=== PATIENT | female | born 1965 | race Caucasian/White ===

== ENCOUNTER → 2017-09-15 08:50 | Outpatient (CLI) | payer OTHER, SELFPAY ==
--- NOTE | 2017-09-15 16:28 | NEURO ---
NCS and/or EMG Patient Report Ordering Doctor: Soha Jacobs DATE OF SERVICE: 09/15/17 Xiao Ha is a 52 year old female who presents for electrodiagnostic testing of the lower limbs. She reports pain in both legs, primarily around the knees. Electrodiagnostic findings: Normal peroneal motor and tibial motor responses noted bilaterally. Sensory responses are within normal limits. F waves and H reflexes are normal bilaterally. On needle EMG, all muscles tested in the lower limbs showed no evidence of denervation with normal motor unit action potentials. Electrodiagnostic impression: This is a normal electrodiagnostic study in the lower limbs. There is no electrodiagnostic evidence for peripheral neuropathy or lumbosacral radiculopathy. If there are any further questions, please do not hesitate to contact me.
== END ==
LOC: PSN 08:51
PROVIDERS: Family Provider Student in an Organized Health Care Education/Training Program; PCP Student in an Organized Health Care Education/Training Program; Visit Provider Nurse Practitioner Adult Health
DX: M79.604 Pain in right leg (principal); M79.605 Pain in left leg
CPT/HCPCS: 95886; 95912

== ENCOUNTER 2019-10-10 17:15 | Observation (INO) | payer SELFPAY ==
[2019-10-10] VITALS (8 sets, daily range): BP systolic 116–182; BP diastolic 65–113; PULSE 90–120; RESP 18–27; TEMP 35.6–37.1; O2SAT 96–98; BMI 36.1; BMI 35.2; BMI 35.3
--- NOTE | 2019-10-10 17:27 | EKG12_ITS ---
Test Reason : SOB Blood Pressure : / mmHG Vent. Rate : 110 BPM Atrial Rate : 110 BPM P-R Int : 136 ms QRS Dur : 082 ms QT Int : 334 ms P-R-T Axes : 022 -57 026 degrees QTc Int : 452 ms Sinus tachycardia Left anterior fascicular block Abnormal ECG Confirmed by HANNA NSES, LUIS ([id number]), publications editor CLAUDIA OSORIO ([id number]) on 10/16/2019 10:50:04 AM Referred By: CAT Confirmed By:DEMETRIA FERREIRA MD
--- NOTE | 2019-10-10 17:29 | NURSING ---
NO OLD EKGS
--- NOTE | 2019-10-10 17:45 | RAD_ITS ---
STUDY: X-RAY CHEST REASON FOR EXAM: Female, 54 years old. Shortness of breath TECHNIQUE: Single frontal view of the chest. COMPARISON: None. FINDINGS: Cardiac silhouette unremarkable. Pulmonary vascularity unremarkable. Aorta unremarkable. No focal airspace opacities. No pleural effusions. Upper abdomen unremarkable. Osseous structures intact. No pneumothorax. RAD/Chest 1 View (Portable) IMPRESSION: No acute cardiopulmonary findings Electronically Signed: Del Lemons, at 18:34 EDT Tel , Service support ,
[2019-10-10 17:48] LABS: Absolute Lymphocyte Count 2.05 X10^3/uL (0.83-4.51); Absolute Neutrophil Count 6.8 X10^3/uL (2.0-7.7); Basophil# 0.04 X10^3/uL; Basophil% 0.4 % (0-1); Eosinophil# 0.16 X10^3/uL; Eosinophils% 1.6 % (0-5); Hematocrit 48.8 % (37-47); Hemoglobin 15.7 g/dL (12.0-15.0); Lymphocyte # 2.05 X10^3/ul (4.0); Lymphocyte % 20.9 % (19-41); Mean Corp Hgb Conc 32.2 g/dL (32-36); Mean Corpuscular Hgb 29.6 pg (27.0-32.0); Mean Corpuscular Volume 91.9 fL (81-99); Mean Platelet Vol. 8.8 fl (6.2-12.0); Monocyte# 0.73 X10^3/uL; Monocyte% 7.4 % (0-10); NRBC Flagged by Analyzer 0 % (0-5); Neutrophil # 6.79 X10^3/uL (2.7-7.7); Neutrophil % 69.2 % (47-70); Platelet Count 269 K/mm3 (150-450); RBC Distribution Width CV 13.3 % (11.6-14.6); Red Blood Count 5.31 M/mm3 (4.2-5.4); White Blood Count 9.8 K/mm3 (4.4-11.0)
--- NOTE | 2019-10-10 18:11 | CT_ITS ---
STUDY: CTA CHEST REASON FOR EXAM: Female, 54 years old. SOB,COUGH -- HX:DIABETES,HTN RADIATION DOSAGE (If Supplied By Facility): CTDIvol = ( 12.63 ) mGy, DLP = ( 513.67 ) mGycm TECHNIQUE: The examination was performed with the intravenous administration of 100ML 370 ISOVUE. Post-processing of the angiographic images was performed, with multiplanar reformation and 3D reconstruction. Individualized dose optimization techniques were used for this CT. COMPARISON: None. FINDINGS: Normal enhancement of the main pulmonary artery and right and left pulmonary arteries. Normal enhancement of the bilateral peripheral pulmonary arteries. Large embolus burden involving the left main pulmonary artery extending just into the pulmonary arterial trunk approximately and distally extending into multiple segmental and subsegmental pulmonary arterial branches. Additionally there is a significant right pulmonary arterial system embolus burden involving multiple segmental branches of the right pulmonary arterial tree predominantly to the middle and lower lobes. Normal thoracic aorta and visualized great vessels. There is no demonstrated aortic dissection. Normal heart and pericardium. Normal mediastinum. Normal hilar regions. Normal visualized trachea and bronchi. The lungs are well expanded. 9 mm nodular density at the left base. Otherwise unremarkable pulmonary parenchyma. Normal pleura. Normal chest wall structures. Normal osseous structures. Normal visualized upper abdomen. CT/CTA Chest W/WO Contrast IMPRESSION: Large pulmonary embolus burden within the pulmonary arterial system as described above. Findings discussed with Dr. Martines by Dr. Lemons on 10/10/2019 7:14 PM via telephone. N.B. : The above information has been verbally conveyed by Del Lemons to Bert Martines MD, on 10/10/2019 19:14:07 (ET). Electronically Signed: Del Lemons, at 19:16 EDT Tel , Service support ,
[2019-10-10 18:14] LABS: Anion Gap 7 (5-15); BUN 19 mg/dL (7-18); BUN/Creat Ratio 22.7 RATIO (10-20); Calcium,Total 10.1 mg/dL (8.5-10.1); Chloride 106 mmol/L (98-107); Creatinine, Serum 0.84 mg/dL (0.55-1.02); EST Glomerular Filtration Rate 75 mL/min (>60); Est Glom Filt Rate - Afr Amer 90 mL/min (>60); Estimated Creatinine Clearance 75.44 ml/min; Glucose 191 mg/dL (74-106); Potassium 4.1 mmol/L (3.5-5.1); Sodium Level 138 mmol/L (136-145)
--- NOTE | 2019-10-10 19:29 | HP.PCM_ITS ---
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 Associated with his symptoms is a postnasal drip which triggers a cough. Further she has some burning in her chest. She reported that her blood pressure at home was elevated. She denies any other symptoms. At emergent department she was noted to have shortness of breath; tachycardia; elevated d-dimer and elevated troponin. D-dimer and troponin was elevated.. CTPA showed large embolus. Received therapeutic dose of Lovenox at the emergency department. She reports history of total hysterectomy without any need for routine Pap smear. She reported that some years back she had a colonoscopy and polyps were removed. Her last colonoscopy was July 2019. Her last colonoscopy was clean. Her mammography was in July 2019. Her last mammography was u nremarkable. She denies any recent travel or immobility. She denies any family history of clots. COVID screen: She denies knowingly coming into contact with anybody with COVID- 19. 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 She denies any recent travel. Past Medical History Past Medical History (Chronic Problems): Chronic Problems HTN (hypertension) (Chronic) Diabetes (Chronic) Allergies aspirin [ASA] Adverse Reaction (Verified 10/10/19 17:16) Nausea latex Adverse Reaction (Verified 10/10/19 17:16) Itching Home Medications: Ambulatory Orders Medication Instructions Recorded Fluoxetine HCl [Prozac] 20 mg PO DAILY 10/10/19 Lisinopril 30 mg PO DAILY 10/10/19 Meloxicam [Mobic] 7.5 mg PO DAILY 10/10/19 Metformin HCl 1,000 mg PO BID 10/10/19 Oxybutynin Chloride [Ditropan Xl] 10 mg PO DAILY 10/10/19 Surgical History: hysterectomy, - - Ovarian cyst and polyp removal. Umbilical hernia repair. Psychiatric History: Anxiety, Depression Smoking Status: Former smoker Alcohol: Occasional - *Family History Maternal History Items: Cancer - colon Paternal History Items: Diabetes Review of Systems Constitutional: Denies: Chills, Fever, Weight Change HEENT: Reports: Post Nasal Drip. Denies: Head Aches, Sinus Congestion, Sinus Drainage Cardiovascular: Reports: Chest Pain. Denies: Palpitations Respiratory: Reports: Cough, Shortness of Breath Gastrointestinal: Denies: Abdominal Pain, Nausea, Vomiting Genitourinary: Denies: Dysuria Musculoskeletal: Denies: Joint Pain, Joint Tenderness Skin: Denies: Rash, Wounds Neurological: Denies: Numbness, Tingling, Focal weakness Psychiatric: Denies: Anxiety, Depression, Homicidal Ideations, Suicidal Ideations Hematologic/ Lymphatic: Denies: Easy Bruising, Easy Bleeding VTE Information - Inpt Only VTE Present on Admission: Yes VTE Mechan Device Prophylaxis: None VTE Pharm Prophylaxis ordered?: No Reason prophylaxis not ordered:: Treatment Not Indicated - Started on therapeutic dose of Lovenox for acute PE Patient Problems: Active and Suspected Problems Pulmonary embolism (Acute) - Physical Exam Vitals/I&O's: Vital Signs Temp Pulse Resp BP Pulse Ox 98.1 F 103 H 18 134/100 H 98 10/10/19 17:16 10/10/19 18:56 10/10/19 18:56 10/10/19 18:56 10/10/19 18:56 Oxygen Delivery Method Room Air Weight: 107.7 kg Body Mass Index (BMI) 36.1 General: Alert, Oriented x3, Cooperative HEENT: Atraumatic, PERRLA, EOMI, Normocephalic Neck: Supple, No JVD, Negative Carotid Bruits Lungs: Clear to auscultation, Normal air movement, No rhonchi, No wheeze, No rales, Tachypneic Cardiovascular: Normal S1, Normal S2, No murmurs, Tachycardic Abdomen: Bowel Sounds Present, Soft, Non Tender Extremities: No edema, Capillary Refill Less than 3 Seconds Skin: No rashes, No breakdown Musculoskeletal: No Tenderness to Palpation of Joints or Extremities Neurological: Cranial nerves II-XII grossly intact Psych/Mental Status: Normal Affect, Appropriate Laboratory Results 10/10/19 17:40: WBC 9.8, RBC 5.31, Hgb 15.7 H, Hct 48.8 H, MCV 91.9, MCH 29.6, MCHC 32.2, RDW Std Deviation 45.0 H, RDW Coeff of Myranda 13.3, Plt Count 269, MPV 8.8, Immature Gran % (Auto) 0.500, Neut % (Auto) 69.2, Lymph % (Auto) 20.9, Merrick % (Auto) 7.4, Eos % (Auto) 1.6, Baso % (Auto) 0.4, Absolute Neuts (auto) 6.8, Absolute Lymphs (auto) 2.05, Nucleated RBC % 0 10/10/19 17:40: D-Dimer Quant (PE/DVT) 3.40 H* 10/10/19 17:40: Sodium 138, Potassium 4.1, Chloride 106, Carbon Dioxide 25.0, Anion Gap 7, BUN 19 H, Creatinine 0.84, Estim Creat Clear Calc 75.44, Est GFR (MDRD) Af Amer 90, Est GFR (MDRD) Non-Af 75, BUN/Creatinine Ratio 22.7 H, Glucose 191 H, Calcium 10.1, Troponin I 0.266 H Assessment/Plan All Active Problems Pulmonary embolism (Acute) 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 Bilateral pulmonary embolus Chest CTA showed bilateral PE. Chest CT was independently reviewed. I agree with radiologist interpretation. Her only risk of PE appears to be obesity. Troponin was elevated. Trend troponin. We will get BNP to quantify prognosis. Consider echocardiogram. Received therapeutic dose of Lovenox. Continue therapeutic Lovenox. 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 Pulmonary consulted. Discussed with Dr. Reilly. Pulmonary nodule Nine (9) mm nodular density at left base base CTPA. Longitudinal follow-up recommended. Hypertension On presentation blood pressure was not within goal. Lisinopril continued. Trend blood pressures. Diabetes mellitus Hyperglycemia on presentation. On home metformin. Due to contrast use with CTPA hold metformin at this time. Put on correction scale insulin. If Blood glucose is not within goal consider basal insulin. Depression/anxiety Fluoxetine continued. Overactive bladder Oxybutynin continued. Morbid obesity: BMI of 35.3. Complicates care. Lifestyle modification recommended. DVT prophylaxis Not indicated since patient is being treated for PE. Continue therapeutic treatment for acute PE. Essential Procedure Criteria Procedure Essential: No Criteria Note: On 09/05/2019 the [facility] ([facility]) Public Order signed by [facility] Director Rebecca Burgos M.D., regarding the Management of Non-Esse ntial Surgeries and Procedures for the purpose of preserving Personal Protective Equipment (PPE) and critical hospital capacity and resources within [place] went into effect as of 09/06/2019 at 5:00PM. According to the [facility] Public Order: This action will remain in full force and effect until the State of Emergency declared by the Governor no longer exists or the Director of the [facility] rescinds or modifies this Order.. This [facility] order stated all non-essential or elective surgeries and procedures that utilize PPE should be delayed unless there is undue risk to the current or future health of a patient. After reviewing the aforementioned [facility] Public Order and the patients clinical case, I have determined that the scheduled procedure meets the criteria to go forward. Inpatient E&M: 19052 Init Hosp L3
--- NOTE | 2019-10-10 19:34 | ED.DCSUM_ITS ---
- ER Visit Summary Date of Service: 10/10/19 Chief Complaint: Shortness of breath History of Present Illness: The patient is a 54 F who presents with shortness of breath. She states that started around lunchtime today. She feels very winded. Nothing really makes symptoms better or worse. She has had a slight nonproductive cough. She does admit to some rhinorrhea as well. She states that she has had some heaviness in the middle of her chest. She denies a fever. No history of any lung issues. Denies any exposures to coronavirus. She states her blood pressure has been elevating at home and when she talk to her doctor they thought she should come in for evaluation. Denies any history of DVT or PE. She has no PE or DVT risk factors. Her only cardiac risk factor is diabetes. Physical Examination: Vital signs reviewed. HEENT exam unremarkable. Heart is tachycardic and regular rhythm without murmurs. Lungs are clear to auscultation. Abdomen is soft and nontender. Extremities reveal no edema. Peripheral pulses are equal. Skin exam normal. Neurologic exam normal. Test Results: EKG was sinus tachycardia with a rate of 110. No ST changes. Laboratory studies show a hemoglobin of 15.7, glucose 191. Troponin is 0.226, d-dimer 3.4. Chest x-ray unremarkable. CAT scan of the chest does show bilateral PEs with large clot burden. Emergency Department Course and Treatment: Radiologist did not remark about any RV strain. Patient's pulse ox is normal. However, due to her elevated troponin, tachycardia and tachypnea, I feel the patient should be admitted to the hospital. I gave her a dose of Lovenox here. She is allergic to aspirin. Treatment Plan: [] Disposition: Admit Impression: Bilateral pulmonary emboli, elevated troponin This note was generated with [employer] dictation software. It may contain incorrect words, spelling, and punctuation that were not noted in review of the chart prior to signing ED Disposition - Plan for ED Patient: Referrals: Talib Heredia DO [Primary Care Provider] -
[2019-10-10] MEDS: Enoxaparin 120 MG/0.8 ML Syringe 110 MG SC (19:40)
[2019-10-10] MEDS: 0.9% Saline Lock 10 ML Syringe IV (20:54)
[2019-10-10] MEDS: Insulin Lispro 100 UNIT/ML INSULN.PEN SC (21:00)
[2019-10-10 21:06] LABS: Bedside Glucose 181 mg/dL (70-110)
[2019-10-11] VITALS: BP 125/73; PULSE 92; RESP 20; TEMP 35.7; O2SAT 98
[2019-10-11 03:41] VITALS: PULSE 74
[2019-10-11 05:00] VITALS: BP 119/82; PULSE 81; RESP 18; TEMP 35.6; O2SAT 99
[2019-10-11] MEDS: 0.9% Saline Lock 10 ML Syringe IV (05:32)
[2019-10-11 06:01] LABS: Absolute Lymphocyte Count 1.49 X10^3/uL (0.83-4.51); Basophil# 0.03 X10^3/uL; Basophil% 0.4 % (0-1); Eosinophil# 0.14 X10^3/uL; Eosinophils% 1.9 % (0-5); Hematocrit 44.3 % (37-47); Hemoglobin 14.4 g/dL (12.0-15.0); Lymphocyte # 1.49 X10^3/ul (4.0); Lymphocyte % 20.4 % (19-41); Mean Corp Hgb Conc 32.5 g/dL (32-36); Mean Corpuscular Hgb 29.6 pg (27.0-32.0); Mean Corpuscular Volume 91.2 fL (81-99); Monocyte% 8.2 % (0-10); NRBC Flagged by Analyzer 0 % (0-5); Neutrophil # 5.01 X10^3/uL (2.7-7.7); Neutrophil % 68.7 % (47-70); Platelet Count 226 K/mm3 (150-450); RBC Distribution Width CV 13.4 % (11.6-14.6); RBC Distribution Width SD 44.8 fl (35.1-43.9); Red Blood Count 4.86 M/mm3 (4.2-5.4); White Blood Count 7.3 K/mm3 (4.4-11.0)
[2019-10-11 06:09] LABS: BNP,B-Type NATRIURETIC PEPTIDE 41.7 pg/mL (0-100)
[2019-10-11 06:12] LABS: Anion Gap 9 (5-15); BUN 16 mg/dL (7-18); BUN/Creat Ratio 21.4 RATIO (10-20); Calcium,Total 9.1 mg/dL (8.5-10.1); Chloride 103 mmol/L (98-107); Creatinine, Serum 0.75 mg/dL (0.55-1.02); EST Glomerular Filtration Rate 85 mL/min (>60); Est Glom Filt Rate - Afr Amer 103 mL/min (>60); Estimated Creatinine Clearance 84.49 ml/min; Glucose 233 mg/dL (74-106); Potassium 4.3 mmol/L (3.5-5.1); Sodium Level 137 mmol/L (136-145)
--- NOTE | 2019-10-11 06:58 | PCM.CON.CC ---
Reason for Consult Date of Consultation: 10/11/19 Reason for Consultation: Pulmonary embolism History of Present Illness: The patient is a 54-year-old female, with a history as outlined below, who presented to the emergency department on October 09 with complaints of shortness of breath. In addition, the patient reports the presence of a chronic, nonproductive cough related to postnasal drip symptoms, along with rhinorrhea. She denies any fevers, chills, myalgias or any known COVID exposures. Although the patient has no personal history of venous thromboembolic disease, she does report that both her brother and sister have both had blood clots. The etiology for their blood clots was never determined. The patient denies any recent travel or prolonged immobility. The patient does have a known history of obstructive sleep apnea, for which he utilizes nocturnal Pap therapy. 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 On presentation to the emergency department, the patient was noted to be tachycardic and tachypneic. She was, nevertheless hemodynamically stable and maintaining appropriate oxygen saturations on room air. Laboratory evaluation revealed no evidence of leukocytosis. D-dimer was elevated to 3.4. Chemistry profile was unremarkable. Initial troponin was mildly elevated at 0.266. BNP was within normal limits. A CTA chest was obtained which did reveal evidence of significant bilateral pulmonary emboli. The patient was subsequently admitted to the medical intensive care unit for further management. Overnight, the patient was maintained in COVID precautions. However, her CTA chest does not reveal a pattern consistent with coronavirus infection, nor does she endorse any symptoms overtly concerning for infection. Therefore, the precautions were discontinued this morning. Past Medical History Past Medical History (Chronic Problems): Chronic Problems HTN (hypertension) (Chronic) Diabetes (Chronic) Allergies aspirin [ASA] Adverse Reaction (Verified 10/10/19 17:16) Nausea latex Adverse Reaction (Verified 10/10/19 17:16) Itching Home Medications: Ambulatory Orders Medication Instructions Recorded Fluoxetine HCl [Prozac] 20 mg PO DAILY 10/10/19 Lisinopril 30 mg PO DAILY 10/10/19 Metformin HCl 1,000 mg PO BID 10/10/19 Oxybutynin Chloride [Ditropan Xl] 10 mg PO DAILY 10/10/19 Rivaroxaban [Xarelto] 1 tab PO UD 30 Days #51 tab 10/11/19 Surgical History: hysterectomy, - - Ovarian cyst and polyp removal. Umbilical hernia repair. Psychiatric History: Anxiety, Depression Smoking Status: Former smoker Alcohol: Occasional - *Family History Maternal History Items: Cancer - colon Paternal History Items: Diabetes Review of Systems Constitutional: Denies: Chills, Fever, Night Sweats Eyes: Denies: Blurred vision, Double vision HEENT: Reports: Post Nasal Drip, Sinus Drainage Cardiovascular: Denies: Chest Pain, Palpitations Respiratory: Reports: Cough, Shortness of Breath. Denies: Sputum production Gastrointestinal: Denies: Abdominal Pain, Nausea, Vomiting Genitourinary: Denies: Dysuria Musculoskeletal: Denies: Joint Pain, Joint Tenderness Skin: Denies: Rash, Wounds Neurological: Denies: Numbness, Tingling, Focal weakness Psychiatric: Denies: Anxiety, Depression, Homicidal Ideations, Suicidal Ideations Hematologic/ Lymphatic: Denies: Hx of blood clot Patient Problems: Active and Suspected Problems Pulmonary embolism (Acute) Objective: The patient's most recent lab work, culture data and imaging studies have all been personally reviewed. Respiratory viral panel was negative. - Physical Exam Vitals/I&O's: Vital Signs Temp Pulse Resp BP Pulse Ox 96.0 F L 81 18 119/82 H 99 10/11/19 05:00 10/11/19 05:00 10/11/19 05:00 10/11/19 05:00 10/11/19 05:00 Oxygen Flow Rate (L/min) 2 Oxygen Delivery Method Nasal Cannula Weight: 232 lb 12.93 oz Body Mass Index (BMI) 35.2 Intake and Output for Last 24 Hours 10/09/19 10/10/19 10/11/19 23:59 23:59 23:59 Intake Total 240 / 240 360 / 360 Balance 240 / 240 360 / 360 General: Alert, Oriented x3, Cooperative, No apparent distress HEENT: Atraumatic, PERRLA, Normocephalic Oral: No Gingival or Mucosal Lesions/ Ulcerations Neck: Supple, No Nodes, Trachea Midline Lungs: Normal air movement, No rhonchi, No wheeze, No rales Cardiovascular: Regular rate, Regular Rhythm, Normal S1, Normal S2 Abdomen: Bowel Sounds Present, Soft, Non Tender, Obese Extremities: No clubbing, No cyanosis Skin: No breakdown Musculoskeletal: No Muscle Wasting Lymphatic: No Cervical, Supraclavicular, or Inguinal Adenopathy Neurological: Cranial nerves II-XII grossly intact, Neuro grossly intact Psych/Mental Status: Alert and oriented to time, place, person, mood and affect Labs (Last 48 Hours) 10/10/19 10/10/19 10/10/19 17:40 17:40 17:40 WBC 9.8 RBC 5.31 Hgb 15.7 H Hct 48.8 H MCV 91.9 MCH 29.6 MCHC 32.2 RDW Std Deviation 45.0 H RDW Coeff of Myranda 13.3 Plt Count 269 MPV 8.8 Immature Gran % (Auto) 0.500 Neut % (Auto) 69.2 Lymph % (Auto) 20.9 [place] % (Auto) 7.4 Eos % (Auto) 1.6 Baso % (Auto) 0.4 Absolute Neuts (auto) 6.8 Absolute Lymphs (auto) 2.05 Nucleated RBC % 0 D-Dimer Quant (PE/DVT) 3.40 H* Sodium 138 Potassium 4.1 Chloride 106 Carbon Dioxide 25.0 Anion Gap 7 BUN 19 H Creatinine 0.84 Estim Creat Clear Calc 75.44 Est GFR (MDRD) Af Amer 90 Est GFR (MDRD) Non-Af 75 BUN/Creatinine Ratio 22.7 H Glucose 191 H Calcium 10.1 Troponin I 0.266 H B-Natriuretic Peptide POC Glucose 10/10/19 10/10/19 10/10/19 20:32 20:45 23:50 WBC RBC Hgb Hct MCV MCH MCHC RDW Std Deviation RDW Coeff of Myranda Plt Count MPV Immature Gran % (Auto) Neut % (Auto) Lymph % (Auto) [place] % (Auto) Eos % (Auto) Baso % (Auto) Absolute Neuts (auto) Absolute Lymphs (auto) Nucleated RBC % D-Dimer Quant (PE/DVT) Sodium Potassium Chloride Carbon Dioxide Anion Gap BUN Creatinine Estim Creat Clear Calc Est GFR (MDRD) Af Amer Est GFR (MDRD) Non-Af BUN/Creatinine Ratio Glucose Calcium Troponin I 0.213 H 0.147 H B-Natriuretic Peptide POC Glucose 181 H 10/11/19 10/11/19 10/11/19 05:51 05:51 05:51 WBC 7.3 RBC 4.86 Hgb 14.4 Hct 44.3 MCV 91.2 MCH 29.6 MCHC 32.5 RDW Std Deviation 44.8 H RDW Coeff of Myranda 13.4 Plt Count 226 MPV 9.0 Immature Gran % (Auto) 0.400 Neut % (Auto) 68.7 Lymph % (Auto) 20.4 [place] % (Auto) 8.2 Eos % (Auto) 1.9 Baso % (Auto) 0.4 Absolute Neuts (auto) 5.0 Absolute Lymphs (auto) 1.49 Nucleated RBC % 0 D-Dimer Quant (PE/DVT) Sodium 137 Potassium 4.3 Chloride 103 Carbon Dioxide 25.0 Anion Gap 9 BUN 16 Creatinine 0.75 Estim Creat Clear Calc 84.49 Est GFR (MDRD) Af Amer 103 Est GFR (MDRD) Non-Af 85 BUN/Creatinine Ratio 21.4 H Glucose 233 H Calcium 9.1 Troponin I B-Natriuretic Peptide 41.7 POC Glucose Microbiology 10/10/19 22:20 Mucosa - Nasopharyngeal Respiratory Panel (PCR) - Final Clinical Impression(s) from Imaging Studies Chest X-Ray 10/10/19 17:45 IMPRESSION: No acute cardiopulmonary findings Electronically Signed: Del Lemons, at 18:34 EDT Tel , Service support , Chest CTA 10/10/19 18:11 IMPRESSION: Large pulmonary embolus burden within the pulmonary arterial system as described above. Findings discussed with Dr. Martines by Dr. Lemons on 10/10/2019 7:14 PM via telephone. N.B. : The above information has been verbally conveyed by Del Lemons to Bert Martines MD, on 10/10/2019 19:14:07 (ET). Electronically Signed: Del Lemons at 19:16 EDT Tel , Service support , ADDENDUM: 10/10/191922 IMPRESSION: Large pulmonary embolus burden within the pulmonary arterial system as described above. Findings discussed with Dr. Martines by Dr. Lemons on 10/10/2019 7:14 PM via telephone. N.B. : The above information has been verbally conveyed by Del Lemons to Bert Martines MD, on 10/10/2019 19:14:07 (ET). Electronically Signed: Del Lemons, at 19:16 EDT Tel , Service support , Current Medications Dextrose (D50w Syringe) 0 gm IV X1 PRN; Protocol PRN Reason: Hypoglycemia Enoxaparin Sodium (Lovenox) 110 mg SC Q12 JANELLE Last Admin: 10/10/19 20:33 Dose: Not Given Documented by: Fluoxetine HCl (Prozac) 20 mg PO DAILY JANELLE Glucagon () 1 mg IM .X1 PRN PRN Reason: Hypoglycemia Sodium Chloride () 250 mls @ 15 mls/hr IV .[id number] PRN PRN Reason: Saline Flush Sodium Chloride () 250 mls @ 15 mls/hr IV .[id number] PRN PRN Reason: Additional IVPB Infusion Insulin Human Lispro (Humalog Kwikpen (Bkc)) 0 unit SC ACHS JANELLE; Protocol Last Admin: 10/10/19 21:00 Dose: 2 u Documented by: Lisinopril (Zestril) 30 mg PO DAILY JANELLE Melatonin (Melatonin) 3 mg PO QHS PRN PRN PRN Reason: INSOMNIA Meloxicam (Mobic) 7.5 mg PO DAILY JANELLE Ondansetron HCl (Zofran) 4 mg IV Q8H PRN PRN PRN Reason: NAUSEA/VOMITING Sodium Chloride () 10 - 40 ml IV UD PRN PRN Reason: SALINE FLUSH Last Admin: 10/11/19 05:32 Dose: 40 ml Documented by: Tolterodine Tartrate (Detrol La) 2 mg PO DAILY [facility] Assessment/Plan Active and Suspected Problems Pulmonary embolism (Acute) RECOMMENDATIONS: 1. Discontinue COVID precautions. I do not see an indication to proceed with testing at this time. 2. Continue Lovenox for now with plans to transition to either Xarelto or Eliquis, depending on cost. 3. Consider outpatient hypercoagulable work-up, given family history of blood clots. 4. Obtaining an echocardiogram is not necessary, as it would not change our management. 5. Perform walking oximetry prior to consideration for discharge home. 6. The patient should follow-up in the pulmonary medicine clinic after discharge. 7. The patient is medically stable for transfer out of the intensive care unit versus possible discharge home today. IMPRESSIONS: 1. Bilateral pulmonary emboli Unclear precipitating etiology, although, the patient does report that both her brother and sister have been diagnosed with blood clots. Therefore, the patient may require outpatient hypercoagulable work-up at some point in the future. For now, I would recommend that we transition her from Lovenox over to either Eliquis or Xarelto. Perform walking oximetry study prior to consideration for discharge home. The patient will need to be scheduled for a follow-up visit in the pulmonary medicine clinic after discharge. 2. Chronic cough likely related to postnasal drip Likely related to allergic rhinitis. Intranasal fluticasone can be considered for symptom relief. 3. Hypertension/diabetes mellitus/obstructive sleep apnea/depression/anxiety/obesity Complicates care, management, recovery and prognosis. Continue home medications as indicated. This note was generated with [employer] dictation software. It may contain incorrect words, spelling, and punctuation that were not noted in checking the note before signing. Inpatient E&M: 09524 Init Hosp L3
--- NOTE | 2019-10-11 07:10 | PCM.PN.HOSP ---
Patient Problems: Active and Suspected Problems Pulmonary embolism (Acute) Subjective: Patient with no acute events overnight per self and per nursing report. She notes feeling improved since initial presentation and notes dyspnea with primarily exertion. She denies any chest discomfort or market coughing. Family history discussed and she does admit that her siblings x2 do have a history of multiple VTE but unclear specific hypercoagulable state. Patient denies any recent prolonged sedentary state, travel, high risk situations as etiology for acute presentation and discussed that likely given her sibling status would need a follow-up hypercoagulable work-up outpatient. 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 Patient denies fevers, chills, nausea, emesis, abdominal pain, chest pain. Objective: Physical Examination: General: awake, alert, oriented x 3 and cooperative, seated upright in the ICU bed in no apparent distress. Skin: normal color, turgor, no icterus, cyanosis. HEENT: AT/NC, EOMI, PERRLA, MMM. Lungs: CTA bilaterally, moderate effort, mild decrease BL bases, no rales, ronchi or wheezing. Heart: Regular rate and rhythm; no gallop, rub audible. Abdomen: soft, obese, NTTP, ND, normal BS. Extremities: no cyanosis, clubbing, or edema, no BL LE pain with palpation. Neurological: patient awake, alert, oriented x 3; cognitive function intact; pupils equally reactive to light and accomodation; cranial nerves II-XII grossly normal, moving all 4 extremities, no focal deficits, strength moderately globally decreased secondary to acute presentation. Psychiatric: affect appears normal, no acute evidence of depressive or anxiety feelings. Vitals/I&O's: Vital Signs Temp Pulse Resp BP Pulse Ox 96.0 F L 81 18 119/82 H 99 10/11/19 05:00 10/11/19 05:00 10/11/19 05:00 10/11/19 05:00 10/11/19 05:00 Oxygen Flow Rate (L/min) 2 Oxygen Delivery Method Nasal Cannula Weight: 232 lb 12.93 oz Body Mass Index (BMI) 35.2 Intake and Output for Last 24 Hours 10/09/19 10/10/19 10/11/19 23:59 23:59 23:59 Intake Total 240 / 240 360 / 360 Balance 240 / 240 360 / 360 Microbiology Past 72 Hours 10/10/19 22:20 Mucosa - Nasopharyngeal Respiratory Panel (PCR) - Final Laboratory Results 10/10/19 17:40: WBC 9.8, RBC 5.31, Hgb 15.7 H, Hct 48.8 H, MCV 91.9, MCH 29.6, MCHC 32.2, RDW Std Deviation 45.0 H, RDW Coeff of Myranda 13.3, Plt Count 269, MPV 8.8, Immature Gran % (Auto) 0.500, Neut % (Auto) 69.2, Lymph % (Auto) 20.9, Jones % (Auto) 7.4, Eos % (Auto) 1.6, Baso % (Auto) 0.4, Absolute Neuts (auto) 6.8, Absolute Lymphs (auto) 2.05, Nucleated RBC % 0 10/10/19 17:40: D-Dimer Quant (PE/DVT) 3.40 H* 10/10/19 17:40: Sodium 138, Potassium 4.1, Chloride 106, Carbon Dioxide 25.0, Anion Gap 7, BUN 19 H, Creatinine 0.84, Estim Creat Clear Calc 75.44, Est GFR (MDRD) Af Amer 90, Est GFR (MDRD) Non-Af 75, BUN/Creatinine Ratio 22.7 H, Glucose 191 H, Calcium 10.1, Troponin I 0.266 H 10/10/19 20:32: POC Glucose 181 H 10/10/19 20:45: Troponin I 0.213 H 10/10/19 23:50: Troponin I 0.147 H 10/11/19 05:51: Sodium 137, Potassium 4.3, Chloride 103, Carbon Dioxide 25.0, Anion Gap 9, BUN 16, Creatinine 0.75, Estim Creat Clear Calc 84.49, Est GFR (MDRD) Af Amer 103, Est GFR (MDRD) Non-Af 85, BUN/Creatinine Ratio 21.4 H, Glucose 233 H, Calcium 9.1 10/11/19 05:51: B-Natriuretic Peptide 41.7 10/11/19 05:51: WBC 7.3, RBC 4.86, Hgb 14.4, Hct 44.3, MCV 91.2, MCH 29.6, MCHC 32.5, RDW Std Deviation 44.8 H, RDW Coeff of Myranda 13.4, Plt Count 226, MPV 9.0, Immature Gran % (Auto) 0.400, Neut % (Auto) 68.7, Lymph % (Auto) 20.4, Jones % (Auto) 8.2, Eos % (Auto) 1.9, Baso % (Auto) 0.4, Absolute Neuts (auto) 5.0, Absolute Lymphs (auto) 1.49, Nucleated RBC % 0 Current Medications Dextrose (D50w Syringe) 0 gm IV X1 PRN; Protocol PRN Reason: Hypoglycemia Enoxaparin Sodium (Lovenox) 110 mg SC Q12 JANELLE Last Admin: 10/10/19 20:33 Dose: Not Given Documented by: Fluoxetine HCl (Prozac) 20 mg PO DAILY [facility] Glucagon () 1 mg IM .X1 PRN PRN Reason: Hypoglycemia Sodium Chloride () 250 mls @ 15 mls/hr IV .[id number] PRN PRN Reason: Saline Flush Sodium Chloride () 250 mls @ 15 mls/hr IV .[id number] PRN PRN Reason: Additional IVPB Infusion Insulin Human Lispro (Humalog Kwikpen (Bkc)) 0 unit SC ACHS JANELLE; Protocol Last Admin: 10/10/19 21:00 Dose: 2 u Documented by: Lisinopril (Zestril) 30 mg PO DAILY [facility] Melatonin (Melatonin) 3 mg PO QHS PRN PRN PRN Reason: INSOMNIA Meloxicam (Mobic) 7.5 mg PO DAILY [facility] Ondansetron HCl (Zofran) 4 mg IV Q8H PRN PRN PRN Reason: NAUSEA/VOMITING Sodium Chloride () 10 - 40 ml IV UD PRN PRN Reason: SALINE FLUSH Last Admin: 10/11/19 05:32 Dose: 40 ml Documented by: Tolterodine Tartrate (Detrol La) 2 mg PO DAILY [facility] STROKE Vital Signs/Narrative: Vital Signs Temp Pulse Resp BP Pulse Ox 10/11/19 05:00 96.0 F L 81 18 119/82 H 99 10/11/19 03:41 74 Medical Necessity - Tobacco Use Smoking Status: Former smoker Assessment/Plan All Active Problems Pulmonary embolism (Acute) The patient is a 54 y/o F w/ PMHx: Obesity, HTN, Diabetes mellitus type II, Anxiety and Depression, OA, Former Tobacco use who presents to the [facility] ED on 10/11/19 with history of of breath on day of ED presentation and noted that she also had some mild postnasal drip which she has during the season with allergic rhinitis history and also noted that her blood pressures have been elevated at home prompting ED presentation. 1. Dyspnea secondary to Acute BL Pulmonary Embolism with Elevated Cardiac Enzymes secondary to strain: EKG without acute findings, CXR no acute process, D-dimer elevated, CTPA with bilateral large pulmonary embolus burden, CBC and BMP unremarkable, d-dimer 3.40, troponin 0.266 with trend improving with repeat 0.213 and final 0.147 likely secondary to strain, BNO 41.7. Noted family history of likely hypercoaguable state her siblings x2 but unclear specific hypercoagulable disease. Admitted to the ICU, maintain on cardiac telemetry with trended cardiac enzymes which improved, BNP normal, defer DVT ultrasound as well as ECHO per ICU/pulmonary physician recommendation specifically especially given improving trend. Recommended patient have hypercoaguable panel obtained outpatient given already administered therapeutic lovenox upon ED presentation. 10/11/19 AM insurance oral regimen investigation with planned discharge on xarelto, sent to [facility] pharmacy with recommendation for patient to be off work until the following Wednesday given activity level required, PCP follow-up and noted would need rx in 1 month again. During admission given burden patient was maintained as noted in the ICU with pulmonary/critical care consultation. 2. Diabetes mellitus type II: Hold metformin during admission, recommend hemoglobin A1c follow-up outpatient with PCP per normal protocol, maintained on accu checks w/ ISS. 3. Hypertension: Continue home regimen including lisinopril, PRN hydralazine. 4. Anxiety and depression: We will continue patient home Prozac regimen. 5. Obesity: Weight loss and lifestyle changes encouraged. 6. Former tobacco usage: Encouraged continued tobacco cessation. 7. DVT prophylaxis: SCDs, therapeutic Lovenox transitioning upon discharge to Xarelto.
[2019-10-11 08:00] VITALS: BP 143/89; PULSE 75; PULSE 88; RESP 16; TEMP 36.6; O2SAT 100
[2019-10-11] MEDS: Insulin Lispro 100 UNIT/ML INSULN.PEN SC ×2 (08:43→12:22)
[2019-10-11] MEDS: Lisinopril 10 MG Tablet 30 MG PO (09:37)
[2019-10-11] MEDS: Meloxicam 7.5 MG Tablet PO (09:37)
[2019-10-11] MEDS: Tolterodine Tartrate 2 MG CAP.SA PO (09:37)
[2019-10-11] MEDS: FLUoxetine 20 MG Capsule PO (09:38)
[2019-10-11] MEDS: Enoxaparin 120 MG/0.8 ML Syringe 110 MG SC (09:38)
--- NOTE | 2019-10-11 09:40 | CASEMGMT ---
CARLINE OLGUIN Face to Face with patient for initial transition planning/care coordination assessment. CARLINE OLGUIN introduced self and role at [facility]. Patient lying in bed, alert and oriented. Patient willing to participate in assessment and is able to answer all questions appropriately. Care providers, pharmacy, and demographics verified. Patient wishes to discharge home, denies need for home health at this time. Patient states she has no further needs or concerns at this time. CM to follow for discharge planning needs that may arise. PCP: Nimesh Specialists: none Preferred Pharmacy: [facility], getting medication filled at [facility] prior to discharge and using RX assist with xarelto script. Savings card applied as well. Insurance: none, saving card for script. CARLINE OLGUIN advised patient to follow-up with PCP. Prescription Benefit: none Living Will/HPOA: none LNOK: Significant other Living Arrangements: Patient lives with significant other in 2nd floor apartment. Patient is independent at home. Transportation: self, significant other. DME/HHC: Patient has cpap at home. Patient denies additional DME or previous HHC. Disposition Plan: Patient to discharge home with family support and follow-up plans in place. Zulma LOTT, RN, CM
[2019-10-11 09:41] VITALS: O2SAT 96; O2SAT 98
--- NOTE | 2019-10-11 09:49 | CASEMGMT ---
Social Work Note Pt is listed as self-pay. SW reviewed chart, PFS saw pt. 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 PFS states pt doesn't qualify for HCAP or medicaid. Pt may qualify for [facility] and this will be mailed to pt. JACQUI met with pt. SW introduced self and role at [facility]. Pt is alert and orientated x3. SW spoke with pt regarding self-pay. 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 SW educated pt on RX assist program through [facility]. Pt would like to utilize RX assist program. SW provided pt with additional resources including [place] [id number], [employer], [facility], [facility], and did provide pt with Medicaid application and [facility] number. Pt thanked this worker for resources, denied additional needs or concerns at this time. JACQUI completed RX assist, sent to [facility] for pt. Zulma Terry [employer] SCREEN ETCHER, [employer]IV[employer]
[2019-10-11 11:31] LABS: Bedside Glucose 212 mg/dL (70-110)
--- NOTE | 2019-10-11 11:42 | DCINST_ITS ---
- Discharge Diagnoses Current Active Problems: Current Active and Chronic Problems 1. Acute bilateral pulmonary emboli suspected likely secondary to underlying hypercoagulable state given family history in both siblings 2. Incidentally noted pulmonary nodule with planned for longitudinal follow-up 3. Hypertension 4. Diabetes mellitus type II 5. Depression and anxiety 6. Overactive bladder 7. Former tobacco use You will use the following diet at home:: Cardiac Your food should be the consistency of: Regular Your liquids should be the consistency of: Regular/Thin Discharge Activity: - - Encourage routine structured activity despite shortness of breath. Recommend short walks at least in your home 3-4x daily. Avoid sitting, laying for prolonged periods during the daytime. May resume sexual activity in: - - Once symptomatically able. Weight Bearing Status: Weight bearing as tolerated Call your doctor if you observe: Fever of 101 or Higher, Inability to urinate, Inability to have a bowel movement, Shortness of breath, Dizziness, Fainting spells, Chest pain, Uncontrolled pain Instructions: Pulmonary Embolism, ED Nodule Solitary Pulmonary Additional Instructions: Please follow-up with your primary care physician within 3 to 5 days to review admission and need for continuation of Xarelto therapy. You have been given a one-month supply and will need to have your primary care physician continue this regimen or an alternate appropriate regimen following. Given your family history of hypercoagulable states likely in her siblings this will be needed lifelong however once you have completed the appropriate duration of Xarelto would recommend strongly that your primary care physician at that time perform a hypercoagulable panel evaluation. Additionally on your work-up in the ED you had an incidentally noted pulmonary nodule on your CT chest, typically a 9 mm nodular density at the left base with recommended continued outpatient follow-up. Allergies/Adverse Reactions: Allergies aspirin [ASA] Adverse Reaction (Verified 10/10/19 17:16) Nausea latex Adverse Reaction (Verified 10/10/19 17:16) Itching Medications to take at Discharge Fluoxetine HCl [Prozac] 20 mg PO DAILY 10/10/19 Lisinopril 30 mg PO DAILY 10/10/19 Metformin HCl 1,000 mg PO BID 10/10/19 Oxybutynin Chloride [Ditropan Xl] 10 mg PO DAILY 10/10/19 Rivaroxaban [Xarelto] 1 tab PO UD 30 Days #51 tab 10/11/19 The following prescriptions were given: Rivaroxaban [Xarelto] 1 tab PO UD 30 Days #51 tab Prescription Printed Primary Care Physician: Talib Heredia DO [Primary Care Provider] - Please follow up with your Primary Care Physician in: Please follow-up within 3- 5 days to review admission. Test Results: Test results from this visit will be discussed in further detail at your follow- up appointment, if applicable. Proposed Discharge Date: 10/11/19
--- NOTE | 2019-10-11 11:47 | DS.PCM_ITS ---
Discharge Date and Diagnosis - Problem List Patient Problems: Active and Suspected Problems Pulmonary embolism (Acute) Date of Admission: 10/10/19 Date of Discharge: 10/11/19 - Primary Discharge Diagnosis Active and Suspected Problems 1. Dyspnea secondary to Acute BL Pulmonary Embolism with Elevated Cardiac Enzymes secondary to strain with Suspected underlying hypercoagulable state 2. Diabetes mellitus type II 3. Hypertension 4. Anxiety and depression 5. Obesity 6. Former tobacco usage - Secondary Discharge Diagnosis Chronic Problems HTN (hypertension) (Chronic) Diabetes (Chronic) Hospital Course and Treatment ICU/Pulmonary Medicine Dr. Reilly Operations: None Procedures: EKG Summary of Care Provided: The patient is a 54 y/o F w/ PMHx: Obesity, HTN, Diabetes mellitus type II, Anxiety and Depression, OA, Former Tobacco use who presented to the [facility] ED on 10/11/19 with history of of breath on day of ED presentation and noted that she also had some mild postnasal drip which she has during the season with allergic rhinitis history and also noted that her blood pressures have been elevated at home prompting ED presentation. Evaluation included EKG without acute findings, CXR no acute process, D-dimer elevated, CTPA with bilateral large pulmonary embolus burden, CBC and BMP unremarkable, d-dimer 3.40, troponin 0.266 with trend improving with repeat 0.213 and final 0.147 likely secondary to strain, BNO 41.7. Noted family history of likely hypercoaguable state her siblings x2 but unclear specific hypercoagulable disease. Admitted to the ICU, maintain on cardiac telemetry with trended cardiac enzymes which improved, BNP normal, defer DVT ultrasound as well as ECHO per ICU/pulmonary physician recommendation specifically especially given improving trend. Recommended patient have hypercoaguable panel obtained outpatient given already administered therapeutic lovenox upon ED presentation. 10/11/19 AM insurance oral regimen investigation with planned discharge on xarelto, sent to [facility] pharmacy with recommendation for patient to be off work until the following Wednesday given activity level required, PCP follow-up and noted would need rx in 1 month again. During admission given burden patient was maintained as noted in the ICU with pulmonary/critical care consultation. Oxygenation testing performed prior to discharge and patient required no oxygen. Patient Problems: Active and Suspected Problems Pulmonary embolism (Acute) - Physical Exam Vitals/I&O's: Vital Signs Temp Pulse Resp BP Pulse Ox 97.8 F 75 16 143/89 H 98 04/22/20 08:00 10/11/19 08:00 10/11/19 08:00 10/11/19 08:00 10/11/19 09:41 Oxygen Flow Rate (L/min) 2 Oxygen Delivery Method Nasal Cannula Weight: 232 lb 12.93 oz Body Mass Index (BMI) 35.2 Intake and Output for Last 24 Hours 10/09/19 10/10/19 10/11/19 23:59 23:59 23:59 Intake Total 240 / 240 360 / 360 Balance 240 / 240 360 / 360 Microbiology Past 72 Hours 10/10/19 22:20 Mucosa - Nasopharyngeal Respiratory Panel (PCR) - Final Laboratory Results 10/10/19 17:40: WBC 9.8, RBC 5.31, Hgb 15.7 H, Hct 48.8 H, MCV 91.9, MCH 29.6, MCHC 32.2, RDW Std Deviation 45.0 H, RDW Coeff of Myranda 13.3, Plt Count 269, MPV 8.8, Immature Gran % (Auto) 0.500, Neut % (Auto) 69.2, Lymph % (Auto) 20.9, [place] % (Auto) 7.4, Eos % (Auto) 1.6, Baso % (Auto) 0.4, Absolute Neuts (auto) 6.8, Absolute Lymphs (auto) 2.05, Nucleated RBC % 0 10/10/19 17:40: D-Dimer Quant (PE/DVT) 3.40 H* 10/10/19 17:40: Sodium 138, Potassium 4.1, Chloride 106, Carbon Dioxide 25.0, Anion Gap 7, BUN 19 H, Creatinine 0.84, Estim Creat Clear Calc 75.44, Est GFR (MDRD) Af Amer 90, Est GFR (MDRD) Non-Af 75, BUN/Creatinine Ratio 22.7 H, Glucose 191 H, Calcium 10.1, Troponin I 0.266 H 10/10/19 20:32: POC Glucose 181 H 10/10/19 20:45: Troponin I 0.213 H 10/10/19 23:50: Troponin I 0.147 H 10/11/19 05:51: Sodium 137, Potassium 4.3, Chloride 103, Carbon Dioxide 25.0, Anion Gap 9, BUN 16, Creatinine 0.75, Estim Creat Clear Calc 84.49, Est GFR (MDRD) Af Amer 103, Est GFR (MDRD) Non-Af 85, BUN/Creatinine Ratio 21.4 H, Glucose 233 H, Calcium 9.1 10/11/19 05:51: B-Natriuretic Peptide 41.7 10/11/19 05:51: WBC 7.3, RBC 4.86, Hgb 14.4, Hct 44.3, MCV 91.2, MCH 29.6, MCHC 32.5, RDW Std Deviation 44.8 H, RDW Coeff of Myranda 13.4, Plt Count 226, MPV 9.0, Immature Gran % (Auto) 0.400, Neut % (Auto) 68.7, Lymph % (Auto) 20.4, [place] % (Auto) 8.2, Eos % (Auto) 1.9, Baso % (Auto) 0.4, Absolute Neuts (auto) 5.0, Absolute Lymphs (auto) 1.49, Nucleated RBC % 0 10/11/19 08:41: POC Glucose 212 H Current Medications Dextrose (D50w Syringe) 0 gm IV X1 PRN; Protocol PRN Reason: Hypoglycemia Enoxaparin Sodium (Lovenox) 110 mg SC Q12 [facility] Last Admin: 10/11/19 09:38 Dose: 110 mg Documented by: Fluoxetine HCl (Prozac) 20 mg PO DAILY [facility] Last Admin: 10/11/19 09:38 Dose: 20 mg Documented by: Glucagon () 1 mg IM .X1 PRN PRN Reason: Hypoglycemia Sodium Chloride () 250 mls @ 15 mls/hr IV .[id number] PRN PRN Reason: Saline Flush Sodium Chloride () 250 mls @ 15 mls/hr IV .[id number] PRN PRN Reason: Additional IVPB Infusion Insulin Human Lispro (Humalog Kwikpen (Bkc)) 0 unit SC ACHS [facility]; Protocol Last Admin: 10/11/19 08:43 Dose: 4 u Documented by: Lisinopril (Zestril) 30 mg PO DAILY [facility] Last Admin: 10/11/19 09:37 Dose: 30 mg Documented by: Melatonin (Melatonin) 3 mg PO QHS PRN PRN PRN Reason: INSOMNIA Meloxicam (Mobic) 7.5 mg PO DAILY [facility] Last Admin: 10/11/19 09:37 Dose: 7.5 mg Documented by: Ondansetron HCl (Zofran) 4 mg IV Q8H PRN PRN PRN Reason: NAUSEA/VOMITING Sodium Chloride () 10 - 40 ml IV UD PRN PRN Reason: SALINE FLUSH Last Admin: 10/11/19 05:32 Dose: 40 ml Documented by: Tolterodine Tartrate (Detrol La) 2 mg PO DAILY [facility] Last Admin: 10/11/19 09:37 Dose: 2 mg Documented by: Discharge Activity: - - Encourage routine structured activity despite shortness of breath. Recommend short walks at least in your home 3-4x daily. Avoid sitting, laying for prolonged periods during the daytime. May resume sexual activity in: - - Once symptomatically able. Weight Bearing Status: Weight bearing as tolerated Call your doctor if you observe: Fever of 101 or Higher, Inability to urinate, Inability to have a bowel movement, Shortness of breath, Dizziness, Fainting spells, Chest pain, Uncontrolled pain Home Medications: Medications to take at Discharge Fluoxetine HCl [Prozac] 20 mg PO DAILY 10/10/19 Lisinopril 30 mg PO DAILY 10/10/19 Metformin HCl 1,000 mg PO BID 10/10/19 Oxybutynin Chloride [Ditropan Xl] 10 mg PO DAILY 10/10/19 Rivaroxaban [Xarelto] 1 tab PO UD 30 Days #51 tab 10/11/19 Following Prescrptions Were Given to Patient: Rivaroxaban [Xarelto] 1 tab PO UD 30 Days #51 tab Prescription Printed Primary Care Physician: Talib Heredia DO [Primary Care Provider] - Please follow up with your Primary Care Physician in: Please follow-up within 3- 5 days to review admission. Patient Instructions: Pulmonary Embolism, ED Nodule Solitary Pulmonary Disposition: Home Minutes spent on discharge:: 35 Patient Condition:: Fair Medical Necessity - Tobacco Use Smoking Status: Former smoker Meaningful Use Info Meaningful Use Diagnoses (Choose all that apply): VTE - VTE Anticoag overlap given w/in hospital stay or rx'd at dc?: No Pt receive overlap for 5 days?: No Reason overlap not ordered, prescribed, or given for 5 days: Treatment Not Indicated OBSV E&M: 52542 Observation care discharge
[2019-10-11 12:30] LABS: Bedside Glucose 190 mg/dL (70-110)
== END 2019-10-11 13:15 | disposition home or self-care (01) ==
LOC: ED 18:11 → ICU 10-11 06:58
PROVIDERS: Admitting Provider Hospitalist; Emergency Provider Emergency Medicine; PCP Student in an Organized Health Care Education/Training Program; Visit Provider Family Medicine
DX: I26.99 Other pulmonary embolism without acute cor pulmonale (principal); F41.9 Anxiety disorder, unspecified; F32.9 Major depressive disorder, single episode, unspecified; R91.1 Solitary pulmonary nodule; E11.65 Type 2 diabetes mellitus with hyperglycemia; E66.01 Morbid (severe) obesity due to excess calories; I10 Essential (primary) hypertension; N32.81 Overactive bladder; M19.90 Unspecified osteoarthritis, unspecified site; G47.33 Obstructive sleep apnea (adult) (pediatric); Z79.899 Other long term (current) drug therapy; Z79.84 Long term (current) use of oral hypoglycemic drugs; Z87.891 Personal history of nicotine dependence; Z79.1 Long term (current) use of non-steroidal anti-inflammatories (NSAID); Z68.36 Body mass index [BMI] 36.0-36.9, adult
CPT/HCPCS: 71045; 71275; 80048; 82962; 83880; 84484; 85025; 85379; 87633; 93005; 96372; 99218; 99285; J7030; Q9967; A4216; G0378

== ENCOUNTER 2020-01-01 18:03 | Emergency (ER) | payer SELFPAY ==
[2019-10-10 20:22] VITALS: BMI 35.2
[2020-01-01 18:04] VITALS: BP 192/99; PULSE 81; PULSE 86; RESP 17; TEMP 36.1; O2SAT 96; O2SAT 97; BMI 35.8
--- NOTE | 2020-01-01 18:27 | EKG12_ITS ---
Test Reason : DYSRHYTHMIA Blood Pressure : / mmHG Vent. Rate : 074 BPM Atrial Rate : 074 BPM P-R Int : 132 ms QRS Dur : 088 ms QT Int : 386 ms P-R-T Axes : 030 -29 046 degrees QTc Int : 428 ms Normal sinus rhythm Poor R wave progression Confirmed by MARLEY NESS, CRISTINA ([id number]), subeditor EDIN HOLLOWAY ([id number]) on 01/03/2020 1:08:26 PM Referred By: ELLE Confirmed By:CRISTINA ROACH MD
--- NOTE | 2020-01-01 18:28 | CT_ITS ---
STUDY: CTA CHEST REASON FOR EXAM: Female, 54 years old. SOB,CHEST PAIN,PRIOR DVT WITH PE IN SEPTEMBER - HX:HTN,DIABETES,DVT,PE RADIATION DOSAGE (If Supplied By Facility): CTDIvol = ( 12.58 ) mGy, DLP = ( 539.34 ) mGycm TECHNIQUE: The examination was performed with the intravenous administration of IV 100mL Isovue-370. Post-processing of the angiographic images was performed, with multiplanar reformation and 3D reconstruction. Individualized dose optimization techniques were used for this CT. COMPARISON: CTA chest 10/10/2019. FINDINGS: There is decrease in size and number of bilateral upper, right middle and lower lobe segmental and subsegmental pulmonary emboli when compared to prior exam. Stable ectasia of the ascending thoracic aorta maximum AP and 4.2 cm. 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 There are hypodensities within the thyroid gland. There is development of new small pericardial effusion. There are enlarging small bilateral pleural effusions. There is no demonstrated aortic dissection. Normal mediastinum. Normal hilar regions. Normal visualized trachea and bronchi. The lungs are well expanded. There are stable right upper lobe calcified granuloma. Normal pleura. Normal chest wall structures. Normal osseous structures. Normal visualized upper abdomen. There is contrast within left kidney and/or renal calculus. CT/CTA Chest W/WO Contrast IMPRESSION: Decrease in size and number of bilateral upper, right middle and lower lobe segmental and subsegmental pulmonary emboli when compared to prior exam. 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
--- NOTE | 2020-01-01 18:29 | ED.VIS.GEN ---
History of Present Illness Chief Complaint: Shortness of Breath Informant: Patient Onset: Days Context: Gradual Onset Current Severity: Mild Maximum Severity: Moderate Narrative: Patient presents secondary to concern for DVT/PE. She was diagnosed with the same in September and is currently on Xarelto. Of the past week she has noted her left leg being significantly swollen. She states she also gets shortness of breath and palpitations. She states when this happens her anxiety flares up and she gets a prickly sensation on the right side of her face. She called her PCPs office today who advised her to go to urgent care to get an ultrasound of her leg. When she arrived there they were already done scanning for the day and could not fit her in. She was sent to the emergency room. - Past Medical History (1) Pulmonary embolism Status: Chronic (2) Diabetes Status: Chronic (3) HTN (hypertension) Status: Chronic Past Medical History - Allergies and Home Meds Allergies/Adverse Reactions: Allergies aspirin [ASA] Adverse Reaction (Verified 01/01/20 18:03) Nausea latex Adverse Reaction (Verified 01/01/20 18:03) Itching Primary Care Physician: Talib Heredia DO [Primary Care Provider] - Prior records reviewed: Yes Surgical History: hysterectomy, - - Ovarian cyst and polyp removal. Umbilical hernia repair. Smoking Status: Former smoker - Family History Maternal Family History: Reports: Cancer - colon Paternal Family History: Reports: Diabetes Review of Systems General: Denies: Chills, Fever Eyes: Denies: Visual changes - bilaterally ENT: Denies: Bilateral ear pain Cardiovascular: Reports: Heart racing Respiratory: Reports: Dyspnea, Cough - Mild cough. Denies: Sputum Gastrointestinal: Denies: Abdominal pain, Nausea, Vomiting, Diarrhea Genitourinary: Denies: Dysuria Musculoskeletal: Reports: Swelling, Extremity Pain Skin: Denies: Rash Neurological: Denies: Headache Psych: Reports: Anxiety Hematologic: Denies: Easy bruising, Easy bleeding Allergy: Denies: Uticaria Physical Exam Vital Signs/Narrative: Vital Signs Temp Pulse Resp BP Pulse Ox 01/01/20 18:04 97.0 F L 81 17 192/99 H 96 Inital Vital Signs reviewed: Yes General: Well nourished, Well developed Head: Normocephalic ENT: Moist mucous membranes Neck: Supple Cardiovascular: Regular rate, Regular rhythm Respiratory: No distress, CTA bilaterally Abdomen: Soft, Nontender, Nondistended Extremities: Nontender, No edema, - - Patient currently has some compression stockings on. No appreciable edema. Skin: Normal color Neurological: Alert, Oriented x3 Psychological: Normal affect Diagnostic/Tx/Re-eval Impressions Chest CTA 01/01/20 18:28 IMPRESSION: Decrease in size and number of bilateral upper, right middle and lower lobe segmental and subsegmental pulmonary emboli when compared to prior exam. 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 No DVT Electronically Signed: Tom Simpson at 19:57 EDT Tel , Service support , 01/01/20 18:28 CTA Chest W/WO Contrast [CT] Stat Laboratory Results 01/01/20 01/01/20 19:08 19:08 WBC 6.6 RBC 4.61 Hgb 14.1 Hct 42.6 MCV 92.4 MCH 30.6 MCHC 33.1 RDW Std Deviation 43.8 RDW Coeff of Myranda 13.0 Plt Count 247 MPV 9.6 Immature Gran % (Auto) 0.600 Neut % (Auto) 69.5 Lymph % (Auto) 21.7 [place] % (Auto) 6.2 Eos % (Auto) 1.7 Baso % (Auto) 0.3 Absolute Neuts (auto) 4.6 Absolute Lymphs (auto) 1.44 Nucleated RBC % 0 Sodium 139 Potassium 3.7 Chloride 104 Carbon Dioxide 27.0 Anion Gap 8 BUN 13 Creatinine 0.99 Estim Creat Clear Calc 64.01 Est GFR (MDRD) Af Amer 74 Est GFR (MDRD) Non-Af 61 BUN/Creatinine Ratio 13.1 Glucose 253 H Calcium 9.0 Troponin I < 0.015 TSH 3.13 - EKG Initial EKG Interpretation: Sinus Rhythm - Sinus at 74 with no acute ischemia. - Medical Decision Making Patient's vital signs remained stable throughout her ED stay. At time of discharge systolic blood pressure is 162. Test results are discussed with her. CT of the chest does show continued PEs, however decreased in size when compared to prior. She is to continue her Xarelto. She does have enlarging small bilateral pleural effusions. She was seen by pulmonary while in the emergency room and will be referred to them for follow-up as well. There is a small pericardial effusion and probable thyroid nodules that will need follow-up. She is to follow with her primary care physician regarding this. ED Disposition - Plan for ED Patient: Disposition: Home or Assisted Living Diagnosis: Palpitations Instructions: ED Palpitations Referrals: Talib Heredia DO [Primary Care Provider] - As soon as possible Bladimir Reilly DO [STAFF PHYSICIAN] - 1-2 Weeks
--- NOTE | 2020-01-01 18:32 | US_ITS ---
STUDY: VENOUS DOPPLER ULTRASOUND - LEFT LOWER EXTREMITY REASON FOR EXAM: Female, 54 years old. LT LEG SWELLING PT ON BLOOD THINNER- HX DVT /LT LEG DONE AT [facility] IN SEPTEMBER TECHNIQUE: Ultrasound evaluation of the deep vein system to include esquivel-scale imaging and compression was performed. Esquivel-scale imaging and Doppler sonographic evaluation, including duplex spectral analysis and qualitative color flow sonography, was performed. COMPARISON: None. FINDINGS: Common Femoral Vein: Normal compression, spontaneity and augmentation. Normal color Doppler. Common Femoral Vein/Greater Saphenous Junction: Normal compression, spontaneity and augmentation. Normal color Doppler. Femoral Proximal: Normal compression, spontaneity and augmentation. Normal color Doppler. Femoral Middle: Normal compression, spontaneity and augmentation. Normal color Doppler. Femoral Distal: Normal compression, spontaneity and augmentation. Normal color Doppler. Popliteal Vein: Normal compression, spontaneity and augmentation. Normal color Doppler. Posterior Tibial Vein: Normal compression, spontaneity and augmentation. Normal color Doppler. Peroneal Vein: Normal compression, spontaneity and augmentation. Normal color Doppler. The right common femoral vein was imaged for comparison and demonstrates normal flow, compression and augmentation without thrombosis. US/Venous Duplex Imag/Limited/Uni IMPRESSION: Normal venous Doppler ultrasound of the left lower extremity. No DVT Electronically Signed: Tom Simpson, at 19:57 EDT Tel , Service support ,
[2020-01-01] MEDS: 0.9% Normal Saline 1,000 ML 150 ML IV (19:08)
[2020-01-01 19:13] VITALS: BP 142/87; PULSE 74; RESP 20; TEMP 36.4; O2SAT 97
[2020-01-01 19:37] LABS: Absolute Lymphocyte Count 1.44 X10^3/uL (0.83-4.51); Absolute Neutrophil Count 4.6 X10^3/uL (2.0-7.7); Basophil# 0.02 X10^3/uL; Basophil% 0.3 % (0-1); Eosinophil# 0.11 X10^3/uL; Eosinophils% 1.7 % (0-5); Hematocrit 42.6 % (37-47); Hemoglobin 14.1 g/dL (12.0-15.0); Lymphocyte # 1.44 X10^3/ul (4.0); Lymphocyte % 21.7 % (19-41); Mean Corp Hgb Conc 33.1 g/dL (32-36); Mean Corpuscular Hgb 30.6 pg (27.0-32.0); Mean Corpuscular Volume 92.4 fL (81-99); Mean Platelet Vol. 9.6 fl (6.2-12.0); Monocyte# 0.41 X10^3/uL; Monocyte% 6.2 % (0-10); NRBC Flagged by Analyzer 0 % (0-5); Neutrophil # 4.62 X10^3/uL (2.7-7.7); Neutrophil % 69.5 % (47-70); Platelet Count 247 K/mm3 (150-450); RBC Distribution Width SD 43.8 fl (35.1-43.9); Red Blood Count 4.61 M/mm3 (4.2-5.4); White Blood Count 6.6 K/mm3 (4.4-11.0)
[2020-01-01 20:03] LABS: Anion Gap 8 (5-15); BUN 13 mg/dL (7-18); BUN/Creat Ratio 13.1 RATIO (10-20); Chloride 104 mmol/L (98-107); Creatinine, Serum 0.99 mg/dL (0.55-1.02); EST Glomerular Filtration Rate 61 mL/min (>60); Est Glom Filt Rate - Afr Amer 74 mL/min (>60); Estimated Creatinine Clearance 64.01 ml/min; Glucose 253 mg/dL (74-106); Potassium 3.7 mmol/L (3.5-5.1); Sodium Level 139 mmol/L (136-145); Thyroid Stim Hormone (TSH) 3.13 uIU/mL (0.358-3.74)
[2020-01-01 20:11] VITALS: BP 147/87; PULSE 75; PULSE 87; RESP 16; RESP 18; TEMP 36.6; O2SAT 94
[2020-01-01 21:53] VITALS: BP 147/87; PULSE 87; RESP 16; O2SAT 94
== END 2020-01-01 21:54 | disposition home or self-care (01) ==
PROVIDERS: Emergency Provider Emergency Medicine; PCP Student in an Organized Health Care Education/Training Program
DX: R00.2 Palpitations (principal); J90 Pleural effusion, not elsewhere classified; I31.3 Pericardial effusion (noninflammatory); I10 Essential (primary) hypertension; E11.9 Type 2 diabetes mellitus without complications; Z86.711 Personal history of pulmonary embolism; Z86.718 Personal history of other venous thrombosis and embolism; Z79.01 Long term (current) use of anticoagulants; Z79.84 Long term (current) use of oral hypoglycemic drugs; Z79.899 Other long term (current) drug therapy; Z87.891 Personal history of nicotine dependence
CPT/HCPCS: 71275; 80048; 84443; 84484; 85025; 93005; 93971; 96360; 96361; 99285; J7030; Q9967; A4216

== ENCOUNTER → 2020-07-15 07:00 | Outpatient (CLI) | payer SELFPAY | PROVIDERS: PCP Student in an Organized Health Care Education/Training Program; Visit Provider Student in an Organized Health Care Education/Training Program | DX: Z46.89 Encounter for fitting and adjustment of other specified devices (principal) ==

== ENCOUNTER 2021-02-14 12:08 | Emergency (ER) | payer MEDICAID, SELFPAY ==
[2021-02-14 12:09] VITALS: BP 156/95; PULSE 87; RESP 16; TEMP 37.2; O2SAT 97; BMI 32.9
--- NOTE | 2021-02-14 13:26 | EDS_ITS ---
HPI HPI - GI History of Present Illness Chief Complaint: Abd Pain Informant: patient Abdominal Pain/Flank Pain Onset: Weeks Context: Gradual Onset Timing: Intermittent Quality: Cramping and Dull Current Severity: Mild Maximum Severity: Mild Nausea/Vomiting/Emesis GI Symptom: Negative for Nausea and Vomiting Diarrhea/Melena/Hematochezia GI Symptom: Negative for Diarrhea, Melena and Hematochezia Associated Symptoms Associated Symptoms: Negative for Dysuria, Frequency and Hematuria Narrative Narrative: 48-year-old female history of diabetes, hypertension on Xarelto for factor V Leiden. Has had 2 prior hernia repairs. Complaining of 2-week history of intermittent periumbilical abdominal pain. Nothing specifically makes it better or worse. Normal bowel movements. No dysuria. Recently treated for UTI. No right upper right lower quadrant pain. No fever or chills. No trauma. At times has mild nausea but no vomiting nor diarrhea or constipation. Prior similar symptoms: Yes Recent Illness/Hospitalization: No PFSH PFSH Medical History Diabetes Hypertension Pulmonary embolism Home Medications fluoxetine 20 mg PO DAILY 10/10/19 [History Last Taken 10/10/19] lisinopril 30 mg PO DAILY 10/10/19 [History Last Taken 10/10/19] metformin 1,000 mg PO BID 10/10/19 [History Last Taken 10/10/19] oxybutynin chloride 10 mg PO DAILY 10/10/19 [History Last Taken 10/10/19] rivaroxaban 20 mg PO DAILY 01/01/20 [History Last Taken Unknown] sitagliptin 100 mg PO DAILY 01/01/20 [History Last Taken Unknown] Allergy/AdvReac Type Severity Reaction Status Date / Time aspirin [ASA] AdvReac Nausea Verified 02/14/21 12:08 latex AdvReac Itching Verified 02/14/21 12:08 Social History Smoking Status: Former smoker ROS ROS ED ROS Narrative Denies recent illness. Review of Systems ROS Unobtainable: Denies due to encephalopathy Constitutional Constitutional ED: Denies chills or fever(s) ENT ENT ED: Denies ear pain or sore throat Cardiovascular Cardiovascular: Denies chest pain Respiratory/Chest Respiratory/Chest: Denies cough or dyspnea Gastrointestinal Gastrointestinal: Reports abdominal pain and nausea; Denies constipation, diarrhea or vomiting Genitourinary Genitourinary ED: Denies dysuria Musculoskeletal Musculoskeletal: Denies myalgias Integumentary Denies rash Neurologic Neurologic: Denies headache(s) Psychiatric Psychiatric: Denies depression Endocrine Endocrinology: Denies polyuria Hematologic/Lymphatic Hematologic/Lymphatic: Denies easy bruising Allergic/Immunologic Allergic/Immunologic ED: Denies urticaria EXAM Physical Exam Narrative Exam Narrative: Noise female no acute distress vital signs stable afebrile. HEENT neck heart lung exam is unremarkable abdomen soft nondistended normal bowel sounds no peritoneal signs. She has possibly a periumbilical hernia on the right. It reduces spontaneously. Feeling significantly tender. There is no signs of obstruction. Otherwise abdomen is benign. Both the right upper outer quadrant unremarkable nondistended. No peritoneal signs. Extremities back and neurologic exam unremarkable. Const Vital Signs: 02/14/21 12:09 02/14/21 14:39 Temperature 98.9 F Temperature Source Temporal Pulse Rate 87 Respiratory Rate 16 Blood Pressure 156/95 H 173/94 H Blood Pressure Mean 115 120 Pulse Ox 97 Oxygen Delivery Method Room Air Positive well nourished, well developed and obese; Negative for cachectic, contractures or unkempt General Appearance ED: well developed and NAD; Negative for unkempt, cachectic or contractures Nutritional Appearance: obese; Negative for cachectic HEENT Reports moist mucous membranes normocephalic and atraumatic Eyes PERRL and EOMs intact bilaterally Neck no lymphadenopathy, supple and no JVD General: Negative for tenderness Resp normal respiratory effort and clear to auscultation bilaterally Auscultation: Negative for rales, rhonchi or wheezes Cardio regular rate, regular rhythm, S1 normal heart sound, S2 normal heart sound and no murmurs GI non-tender, non-distended and no masses GI Narrative: Possible periumbilical hernia on the right. Auscultation: normoactive bowel sounds Palpation: soft; Negative for tender, guarding, rigid or rebound tenderness pre sent Back/Spine no CVA tenderness General Back: Negative for CVA tenderness Cervical Spine: Negative for cervical spine tenderness Extremity full ROM General Extremety ED: Negative for edema or tenderness General Extremity: Negative for edema Neuro moves all extremities Sensorium / Orientation: alert, oriented to person, oriented to place and oriented to time Motor Exam: strength 5/5 throughout Psych mental status grossly normal Appearance: Negative for unkempt Skin Lesions: no lesions Rashes: no rashes MDM MDM MDM Narrative Medical decision making narrative: White female with periumbilical abdominal discomfort or 2 prior hernia repairs. May have a new hernia. I will check other screening labs for other causes abdominal pain but clinically I think that is the cause. He is a hernia. It is not strangulated or incarcerated. Repeat exam patient is doing well at 4:10 PM. Repeat abdominal exam is benign. Nontender no peritoneal signs. She and I went over lab test. She will be discharged home with outpatient follow-up for possible evaluation for umbilical hernia. Lab Data Attestation: I reviewed the patient's lab results. Lab results narrative: CBC shows normal white count of 7.5. Hemoglobin 14. Electrolytes potassium of 3.2 normal gap at 9 normal creatinine. Normal liver enzymes. Lipase normal at 268. UA showed no whites or red cells rare bacteria and no nitrites. Labs are unremarkable. Labs: Laboratory Results - last 24 hr 02/14/21 02/14/21 02/14/21 12:25 12:25 13:35 WBC 7.5 RBC 4.87 Hgb 14.2 Hct 43.8 MCV 89.9 MCH 29.2 MCHC 32.4 RDW Std Deviation 46.0 H RDW Coeff of Myranda 14.0 Plt Count 259 MPV 9.6 Immature Gran % (Auto) 0.300 Neut % (Auto) 70.2 H Lymph % (Auto) 22.3 [place] % (Auto) 5.5 Eos % (Auto) 1.3 Baso % (Auto) 0.4 Absolute Neuts (auto) 5.3 Absolute Lymphs (auto) 1.67 Nucleated RBC % 0 Sodium 141 Potassium 3.2 L Chloride 106 Carbon Dioxide 26.0 Anion Gap 9 BUN 13 Creatinine 0.69 Estim Creat Clear Calc 89.65 Est GFR (MDRD) Af Amer 112 Est GFR (MDRD) Non-Af 93 BUN/Creatinine Ratio 18.8 Glucose 133 H Calcium 9.3 Total Bilirubin 0.60 AST 20 ALT 24 Alkaline Phosphatase 71 Total Protein 7.2 Albumin 3.5 Globulin 3.7 Albumin/Globulin Ratio 0.9 Lipase 268 Urine Color Yellow Urine Clarity Clear Urine pH 5.0 Ur Specific [place] 1.025 Urine Protein 30 H Urine Glucose (UA) Normal Urine Ketones Negative Urine Occult Blood 10 H Urine Nitrite Negative Urine Bilirubin Negative Urine Urobilinogen Normal Ur Leukocyte Esterase 25 H Urine RBC 0-5 SEEN Urine WBC 0-5 SEEN Ur Squamous Epith Cells 5-10 SEEN Calcium Oxalate Crystal 1+ Urine Bacteria RARE Urine Mucus 0 SEEN Discharge Plan Triage Chief Complaint: Abd Pain ED Provider: Kleber Ha Dx/Rx/DC Orders Clinical Impression: Hernia of abdominal wall Instructions: ED Hernia (Adult) Prescriptions: No Action oxybutynin chloride 10 MG tablet extended release 24hr 10 mg PO DAILY RF: 0 metformin 1,000 MG tablet 1,000 mg PO BID RF: 0 lisinopril 30 MG tablet 30 mg PO DAILY RF: 0 fluoxetine 20 MG capsule 20 mg PO DAILY RF: 0 sitagliptin 100 MG tablet 100 mg PO DAILY RF: 0 rivaroxaban 20 MG tablet 20 mg PO DAILY RF: 0 Primary Care Provider: Talib Heredia Referrals: Talib Heredia, [Primary Care Provider] - Galina Welch MD [STAFF PHYSICIAN] - As soon as possible Che Courtney MD [STAFF PHYSICIAN] - As soon as possible Activity Restrictions/Additional Instructions: Tylenol for pain. I think your abdominal pain is secondary to another umbilical hernia. Follow-up with one of the surgeons I referred you to have them evaluate you for possible umbilical hernia and if so if that needs repaired. Otherwise your lab work today was unremarkable. Disposition Disposition: Home, Self Care
[2021-02-14 13:42] LABS: Mucous, Urine 0 SEEN /hpf (<or=2+)
[2021-02-14 13:45] LABS: Color, Urine Yellow (Yellow); Glucose, Dipstick Normal (Normal); Ketone-Dipstick Negative (Negative); Leukocyte Esterase-Dipstick 25 /ul (Negative); Nitrite-Dipstick Negative (Negative); Occult Blood-Urine 10 /ul (Negative); Protein-Dipstick 30 mg/dl (Negative); Specific Gravity, Urine 1.025 (1.002-1.030); Urine Bilirubin Dipstick Negative (Negative); Urine Clarity Clear (Clear); Urine Urobilinogen Normal (Normal)
[2021-02-14 14:00] LABS: Bacteria RARE /hpf (None Seen); Calcium Oxalate Crystals Ur 1+ /hpf (<or=2+); Red Blood Cells-Urine 0-5 SEEN /hpf (0-5); Squamous Epithelial Cells - UA 5-10 SEEN /hpf (5-10); White Blood Cells 0-5 SEEN /hpf (0-5)
[2021-02-14 14:08] LABS: Absolute Lymphocyte Count 1.67 X10^3/uL (0.83-4.51); Absolute Neutrophil Count 5.3 X10^3/uL (2.0-7.7); Basophil# 0.03 X10^3/uL; Basophil% 0.4 % (0-1); Eosinophils% 1.3 % (0-5); Hematocrit 43.8 % (37-47); Hemoglobin 14.2 g/dL (12.0-15.0); Lymphocyte # 1.67 X10^3/ul (0.83-4.51); Lymphocyte % 22.3 % (19-41); Mean Corp Hgb Conc 32.4 g/dL (32-36); Mean Corpuscular Hgb 29.2 pg (27.0-32.0); Mean Corpuscular Volume 89.9 fL (81-99); Mean Platelet Vol. 9.6 fl (6.2-12.0); Monocyte# 0.41 X10^3/uL; Monocyte% 5.5 % (0-10); NRBC Flagged by Analyzer 0 % (0-5); Neutrophil # 5.27 X10^3/uL (2.7-7.7); Neutrophil % 70.2 % (47-70); Platelet Count 259 K/mm3 (150-450); Red Blood Count 4.87 M/mm3 (4.2-5.4); White Blood Count 7.5 K/mm3 (4.4-11.0)
[2021-02-14 14:16] LABS: ALB/GLOB Ratio 0.9 RATIO (0.9-2.4); AST(SGOT) 20 U/L (15-37); Alanine Aminotransfer ALT/SGPT 24 U/L (13-56); Albumin, Serum 3.5 g/dL (3.2-5.0); Alkaline Phosphatase 71 U/L (45-117); Anion Gap 9 (5-15); BUN 13 mg/dL (7-18); BUN/Creat Ratio 18.8 RATIO (10-20); Calcium,Total 9.3 mg/dL (8.5-10.1); Chloride 106 mmol/L (98-107); Creatinine, Serum 0.69 mg/dL (0.55-1.02); EST Glomerular Filtration Rate 93 mL/min (>60); Est Glom Filt Rate - Afr Amer 112 mL/min (>60); Estimated Creatinine Clearance 89.65 ml/min; Globulin 3.7 g/dL (2.2-4.2); Glucose 133 mg/dL (74-106); Lipase 268 U/L (73-393); Potassium 3.2 mmol/L (3.5-5.1); Protein, Total 7.2 g/dL (6.4-8.2); Sodium Level 141 mmol/L (136-145)
[2021-02-14 14:39] VITALS: BP 173/94
== END 2021-02-14 16:50 | disposition home or self-care (01) ==
PROVIDERS: Emergency Provider Emergency Medicine; PCP Student in an Organized Health Care Education/Training Program
DX: K43.9 Ventral hernia without obstruction or gangrene (principal); I10 Essential (primary) hypertension; E11.9 Type 2 diabetes mellitus without complications; D68.51 Activated protein C resistance; Z87.440 Personal history of urinary (tract) infections; Z86.711 Personal history of pulmonary embolism; Z79.82 Long term (current) use of aspirin; Z79.84 Long term (current) use of oral hypoglycemic drugs; Z79.01 Long term (current) use of anticoagulants; Z79.899 Other long term (current) drug therapy; Z87.891 Personal history of nicotine dependence
CPT/HCPCS: 80053; 81001; 83690; 85025; 99283; A4216

== ENCOUNTER 2021-02-19 15:48 | Emergency (ER) | payer MEDICAID, SELFPAY ==
[2021-02-19] VITALS (7 sets, daily range): BP systolic 152–194; BP diastolic 101–134; PULSE 63–97; RESP 17–21; TEMP 36.4; O2SAT 94–97; BMI 33.3
--- NOTE | 2021-02-19 16:20 | EDS_ITS ---
HPI History of Present Illness Chief Complaint: Hypertension Detail of Chief Complaint: Also may have a UTI Informant: patient Onset/Context/Timing Onset: Today Current Severity: Mild Maximum Severity: Mild Narrative Narrative: 56-year-old female history of hypertension, diabetes and factor V Leiden on Xarelto. States that she has acute on chronic hypertension today. Is also having dysuria. She denies any fever or chills. She denies any nausea, vomiting or diarrhea. Prior similar symptoms: Yes Recent Illness/Hospitalization: No PFSH PFSH Medical History Diabetes Hypertension Pulmonary embolism Home Medications fluoxetine 20 mg PO DAILY 10/10/19 [History Last Taken 10/10/19] lisinopril 30 mg PO DAILY 10/10/19 [History Last Taken 10/10/19] metformin 1,000 mg PO BID 10/10/19 [History Last Taken 10/10/19] oxybutynin chloride 10 mg PO DAILY 10/10/19 [History Last Taken 10/10/19] rivaroxaban 20 mg PO DAILY 01/01/20 [History Last Taken Unknown] sitagliptin 100 mg PO DAILY 01/01/20 [History Last Taken Unknown] cephalexin 500 mg PO Q6H 7 Days #28 cap 02/19/21 [Rx Last Taken Unknown] Allergy/AdvReac Type Severity Reaction Status Date / Time aspirin [ASA] AdvReac Nausea Verified 02/19/21 15:49 latex AdvReac Itching Verified 02/19/21 15:49 Social History Smoking Status: Former smoker ROS ROS ED ROS Narrative Denies recent illness. Has had some dysuria. Review of Systems ROS Unobtainable: Denies due to encephalopathy Constitutional Constitutional ED: Denies daytime sleepiness Eyes Eyes: Denies systems reviewed and no addt'l complaints, except as documented ENT ENT ED: Denies change in voice or dental pain Cardiovascular Cardiovascular: Denies abdominal pain Respiratory/Chest Respiratory/Chest: Denies chest congestion or chest tightness Gastrointestinal Gastrointestinal: Denies change in bowel habits or dry heaves Genitourinary Genitourinary ED: Reports burning urination Musculoskeletal Musculoskeletal: Denies back pain Integumentary Denies abscess, Abrasions or change in hair Neurologic Neurologic: Denies abnormal movements Psychiatric Psychiatric: Reports none Endocrine Endocrinology: Reports none; Denies deepening of the voice Hematologic/Lymphatic Hematologic/Lymphatic: Reports none; Denies lymphadenopathy Allergic/Immunologic Allergic/Immunologic ED: Reports none; Denies lip swelling EXAM Physical Exam Narrative Exam Narrative: Middle-aged female no acute distress. Vital signs stable initial blood pressure elevated 194/124. Does not look septic toxic in any distress. HEENT exam normal. Neck nontender no lymphadenopathy. Lungs are clear equal symmetric bilaterally. Heart regular rhythm. Abdomen soft nontender. Moving all 4 extremities. No edema. Const Vital Signs: 02/19/21 15:50 02/19/21 16:02 02/19/21 16:30 Temperature 97.5 F L Temperature Source Temporal Pulse Rate 97 Respiratory Rate 17 Respiratory Effort Normal Non-Labored Blood Pressure 194/124 H 152/134 H Blood Pressure Mean 147 140 Pulse Ox 97 Oxygen Delivery Method Room Air 02/19/21 16:50 02/19/21 16:54 02/19/21 17:23 Temperature Temperature Source Pulse Rate 80 70 67 Respiratory Rate 19 H Respiratory Effort Blood Pressure 175/101 H 181/103 H Blood Pressure Mean 125 129 Pulse Ox 94 Oxygen Delivery Method Room Air 02/19/21 17:37 Temperature Temperature Source Pulse Rate 66 Respiratory Rate 21 H Respiratory Effort Blood Pressure 162/110 H Blood Pressure Mean 127 Pulse Ox 95 Oxygen Delivery Method Room Air Positive well nourished, well developed, obese, alert, oriented x3 and no apparent distress; Negative for cachectic, contractures or unkempt General Appearance ED: well developed; Negative for unkempt, cachectic or contractures Nutritional Appearance: obese; Negative for cachectic HEENT Reports normocephalic and head/scalp atraumatic Eyes PERRL, EOMs intact bilaterally, conjunctivae normal and no scleral icterus Neck full ROM, No nuchal rigidity, no lymphadenopathy, supple, no meningeal signs and no JVD Lymph Lymphatic: no lymphadenopathy noted and no lymphedema noted Chest Wall inspection of chest normal and palpation of chest normal Resp normal respiratory effort, normal air movement, no retractions, no use of accessory muscles and clear to auscultation bilaterally Cardio regular rate, regular rhythm, S1 normal heart sound and S2 normal heart sound GI normal to inspection, nondistended, normoactive bowel sounds, soft to palpation, non-tender, non-distended and no masses Back/Spine no CVA tenderness Extremity normal to inspection, no calf tenderness and no pedal edema Neuro oriented x3, CN's II-XII intact bilaterally, moves all extremities and no focal motor deficits Psych mental status grossly normal, thought process normal, cooperative, affect normal and speech normal Appearance: Negative for unkempt Skin no rashes or lesions noted, no wounds and no jaundice MDM MDM MDM Narrative Medical decision making narrative: 56-year-old female acute on chronic hypertension being treated with Lopressor. Urinalysis will also be checked due to her dysuria. And a chemistry panel. Repeat exam patient doing well at 5:30 PM. We went over her test results. Her most recent blood pressure is 170/100. She will be discharged home. Urine culture sent. Started on Keflex 4 times daily for a week. Monitor her blood p ressures and follow-up with her primary care physician to see if they need to adjust her blood pressure medication. Lab Data Attestation: I reviewed the patient's lab results. Lab results narrative: Electrolytes show a gap of 7 creatinine 0.6. Glucose of 134. Urinalysis shows 50-100 white cells no squamous cells rare bacteria negative nitrites and culture will be sent this will be treated as a UTI. Labs: Laboratory Results - last 24 hr 02/19/21 02/19/21 16:35 16:35 Sodium 141 Potassium 3.4 L Chloride 108 H Carbon Dioxide 26.0 Anion Gap 7 BUN 15 Creatinine 0.62 Estim Creat Clear Calc 99.77 Est GFR (MDRD) Af Amer 126 Est GFR (MDRD) Non-Af 105 BUN/Creatinine Ratio 24.1 H Glucose 134 H Calcium 9.5 Urine Color Yellow Urine Clarity Cloudy Urine pH 6.0 Ur Specific [place] 1.020 Urine Protein 30 H Urine Glucose (UA) Normal Urine Ketones Negative Urine Occult Blood 25 H Urine Nitrite Negative Urine Bilirubin Negative Urine Urobilinogen Normal Ur Leukocyte Esterase 500 H Urine RBC 0-5 SEEN Urine WBC 50-100 SEEN Ur Squamous Epith Cells 0 SEEN Urine Bacteria RARE Urine Mucus 0 SEEN Discharge Plan Triage Chief Complaint: Hypertension ED Provider: Kleber Ha Dx/Rx/DC Orders Clinical Impression: HTN (hypertension), Urinary tract infection Instructions: ED High Blood Pressure Hypertension, ED CYSTITIS Female Adult Prescriptions: New cephalexin 500 mg capsule 500 mg PO Q6H 7 Days Qty: 28 RF: 0 No Action oxybutynin chloride 10 MG tablet extended release 24hr 10 mg PO DAILY RF: 0 metformin 1,000 MG tablet 1,000 mg PO BID RF: 0 lisinopril 30 MG tablet 30 mg PO DAILY RF: 0 fluoxetine 20 MG capsule 20 mg PO DAILY RF: 0 sitagliptin 100 MG tablet 100 mg PO DAILY RF: 0 rivaroxaban 20 MG tablet 20 mg PO DAILY RF: 0 Primary Care Provider: Talib Heredia Referrals: Talib Heredia DO [Primary Care Provider] - 3-5 Days Activity Restrictions/Additional Instructions: You have a started on antibiotic Keflex 1 pill 4 times a day for 1 week for your UTI. A urine culture has been sent they can check that the make sure the antibiotic correlates with the bacteria causing the infection. Log your blood pressures twice daily and follow-up with your doctor and see if you need to adjust your blood pressure medication. Take an extra dose of your blood pressure medication tonight if your blood pressure systolic the upper number is higher than 150. Then restarted taking it once a day tomorrow morning. Disposition Disposition: Home, Self Care
[2021-02-19 16:49] LABS: Mucous, Urine 0 SEEN /hpf (<or=2+); Squamous Epithelial Cells - UA 0 SEEN /hpf (5-10)
[2021-02-19] MEDS: Metoprolol Tartrate 5 MG/5 ML Vial IV (16:51)
[2021-02-19 16:53] LABS: Color, Urine Yellow (Yellow); Glucose, Dipstick Normal (Normal); Ketone-Dipstick Negative (Negative); Leukocyte Esterase-Dipstick 500 /ul (Negative); Nitrite-Dipstick Negative (Negative); Occult Blood-Urine 25 /ul (Negative); Protein-Dipstick 30 mg/dl (Negative); Urine Bilirubin Dipstick Negative (Negative); Urine Clarity Cloudy (Clear); Urine Urobilinogen Normal (Normal)
[2021-02-19 16:56] LABS: Anion Gap 7 (5-15); BUN 15 mg/dL (7-18); BUN/Creat Ratio 24.1 RATIO (10-20); Calcium,Total 9.5 mg/dL (8.5-10.1); Chloride 108 mmol/L (98-107); Creatinine, Serum 0.62 mg/dL (0.55-1.02); EST Glomerular Filtration Rate 105 mL/min (>60); Est Glom Filt Rate - Afr Amer 126 mL/min (>60); Estimated Creatinine Clearance 99.77 ml/min; Glucose 134 mg/dL (74-106); Potassium 3.4 mmol/L (3.5-5.1); Sodium Level 141 mmol/L (136-145)
[2021-02-19 17:10] LABS: Red Blood Cells-Urine 0-5 SEEN /hpf (0-5); White Blood Cells 50-100 SEEN /hpf (0-5)
[2021-02-19 17:12] LABS: Bacteria RARE /hpf (None Seen)
[2021-02-19] MEDS: Cephalexin 250 MG Capsule 500 MG PO (17:48)
== END 2021-02-19 17:55 | disposition home or self-care (01) ==
PROVIDERS: Emergency Provider Emergency Medicine; PCP Student in an Organized Health Care Education/Training Program
DX: I10 Essential (primary) hypertension (principal); N39.0 Urinary tract infection, site not specified; E11.9 Type 2 diabetes mellitus without complications; D68.51 Activated protein C resistance; Z86.711 Personal history of pulmonary embolism; Z79.01 Long term (current) use of anticoagulants; Z79.82 Long term (current) use of aspirin; Z79.84 Long term (current) use of oral hypoglycemic drugs; Z79.899 Other long term (current) drug therapy; Z87.891 Personal history of nicotine dependence
CPT/HCPCS: 80048; 81001; 87077; 87086; 87088; 87186; 96374; 99283; A4216

== ENCOUNTER 2021-04-18 10:23 | Emergency (ER) | payer MEDICAID, SELFPAY ==
[2021-04-18 10:25] VITALS: BP 181/108; PULSE 90; RESP 16; TEMP 36.9; O2SAT 98; BMI 32.1
--- NOTE | 2021-04-18 10:43 | EDS_ITS ---
HPI History of Present Illness Chief Complaint: Abd Pain Informant: patient Narrative Narrative: 56-year-old female postop day 9 from a umbilical hernia repair at [facility] by Dr. Mendoza. She states that it took her several days to start eating better and to be able to ambulate without her walker. The other day she tried to lay down in the bed and she got a burning sensation over her lower left quadrant incision. She tells me that that happened again last night and the burning has yet gone away. But then she also states Oh, its burning now. She has been moving her bowels. She called her surgeon's office and they wanted her to come in to see them today at 2:00. She states she did not think she can make it to the 45-minute drive to [place]. [facility] Medical History Diabetes Hypertension Pulmonary embolism Home Medications fluoxetine 20 mg PO DAILY 10/10/19 [History Last Taken 10/10/19] lisinopril 30 mg PO DAILY 10/10/19 [History Last Taken 10/10/19] metformin 1,000 mg PO BID 10/10/19 [History Last Taken 10/10/19] oxybutynin chloride 10 mg PO DAILY 10/10/19 [History Last Taken 10/10/19] rivaroxaban 20 mg PO DAILY 01/01/20 [History Last Taken Unknown] sitagliptin 100 mg PO DAILY 01/01/20 [History Last Taken Unknown] cephalexin 500 mg PO Q6H 7 Days #28 cap 02/19/21 [Rx Last Taken Unknown] Allergy/AdvReac Type Severity Reaction Status Date / Time aspirin [ASA] AdvReac Nausea Verified 04/18/21 10:29 latex AdvReac Itching Verified 04/18/21 10:29 Social History (Updated 04/18/21 @ 10:[address] Raheem Caicedo DO) Smoking Status: Former smoker substance use type: does not use ROS ROS ED Constitutional Constitutional ED: Denies chills or weight loss Eyes Eyes: Denies change in vision or diplopia ENT ENT ED: Denies ear pain, rhinorrhea or sore throat Cardiovascular Cardiovascular: Denies chest pain, orthopnea, palpitations or racing heartbeat Respiratory/Chest Respiratory/Chest: Denies cough, dyspnea or orthopnea Gastrointestinal Gastrointestinal: Reports abdominal pain; Denies diarrhea, nausea or vomiting Genitourinary Genitourinary ED: Denies dysuria, hematuria or urinary frequency Musculoskeletal Musculoskeletal: Denies arthralgias or myalgias Integumentary Denies abscess or rash Neurologic Neurologic: Denies headache(s) or weakness Psychiatric Psychiatric: Denies anxiety, depression, suicidal ideation or suicidal thoughts Endocrine Endocrinology: Denies polydipsia, polyphagia or polyuria Allergic/Immunologic Allergic/Immunologic ED: Denies mouth swelling, tongue swelling or urticaria EXAM Physical Exam Const Vital Signs: 04/18/21 10:25 Temperature 98.4 F Temperature Source Temporal Pulse Rate 90 Respiratory Rate 16 Blood Pressure 181/108 H Blood Pressure Mean 132 Pulse Ox 98 Oxygen Delivery Method Room Air Positive well nourished, well developed and obese General Appearance ED: well developed Nutritional Appearance: obese HEENT Reports normocephalic, head/scalp atraumatic, TM's clear and moist mucous membranes Negative for trauma Tympanic Membrane ED: Yes TM's clear Eyes PERRL and EOMs intact bilaterally Neck no lymphadenopathy, supple and no JVD Resp normal respiratory effort and clear to auscultation bilaterally Cardio regular rate, regular rhythm and no murmurs GI GI Narrative: The surgical incisions appear normal. She has normal active bowel sounds. Patient reports tenderness around the left lower quadrant port site. I do not appreciate seroma erythema drainage or mass. Palpation: soft Back/Spine no CVA tenderness and normal ROM Extremity normal to inspection General Extremety ED: Negative for edema General Extremity: Negative for edema Neuro oriented x3 and CN's II-XII intact bilaterally Sensorium / Orientation: alert Motor Exam: strength 5/5 throughout Psych mental status grossly normal Mood & Affect: Negative for depressed or tearful Skin no rashes or lesions noted and no wounds MDM MDM MDM Narrative Medical decision making narrative: I advised the patient I do not see anything emergent here today. I suspect that she probably strained the area when she lay down and try to get back up again. I encouraged her to try to make the appointment today with at her surgeon's office as I think that would be best as I do not have readily accessed as to what exactly they did and how they did it. She has pain medication at home. But she is only been using Tylenol. Discharge Plan Triage Chief Complaint: Abd Pain ED Provider: Raheem Caicedo Dx/Rx/DC Orders Clinical Impression: Post-operative pain Instructions: After Laparoscopic Hernia Repair, Managing Post-Op Pain at Home Prescriptions: No Action oxybutynin chloride 10 MG tablet extended release 24hr 10 mg PO DAILY RF: 0 metformin 1,000 MG tablet 1,000 mg PO BID RF: 0 lisinopril 30 MG tablet 30 mg PO DAILY RF: 0 fluoxetine 20 MG capsule 20 mg PO DAILY RF: 0 sitagliptin 100 MG tablet 100 mg PO DAILY RF: 0 rivaroxaban 20 MG tablet 20 mg PO DAILY RF: 0 cephalexin 500 mg capsule 500 mg PO Q6H 7 Days Qty: 28 RF: 0 Primary Care Provider: Talib Heredia Referrals: Talib Heredia DO [Primary Care Provider] - Tereso Soto MD [NON-STAFF] - [facility] appointment Disposition Disposition: Home, Self Care
== END 2021-04-18 10:57 | disposition home or self-care (01) ==
LOC: ED 10:51
PROVIDERS: Emergency Provider Emergency Medicine; PCP Student in an Organized Health Care Education/Training Program
DX: G89.18 Other acute postprocedural pain (principal); Z98.890 Other specified postprocedural states; E66.9 Obesity, unspecified; Z68.32 Body mass index [BMI] 32.0-32.9, adult; I10 Essential (primary) hypertension; E11.9 Type 2 diabetes mellitus without complications; Z86.711 Personal history of pulmonary embolism; Z79.84 Long term (current) use of oral hypoglycemic drugs; Z79.01 Long term (current) use of anticoagulants; Z79.899 Other long term (current) drug therapy; Z87.891 Personal history of nicotine dependence
CPT/HCPCS: 99282

== ENCOUNTER 2021-09-09 16:17 | Emergency (ER) | payer MEDICAID, SELFPAY ==
[2021-09-09 16:17] VITALS: BP 188/109; PULSE 105; RESP 20; TEMP 36.9; O2SAT 98; BMI 32.5
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
== END 2021-09-09 17:27 | disposition home or self-care (01) ==
PROVIDERS: Emergency Provider Emergency Medicine; PCP Student in an Organized Health Care Education/Training Program; Visit Provider Emergency Medicine
DX: S80.02XA Contusion of left knee, initial encounter (principal); D68.51 Activated protein C resistance; E11.9 Type 2 diabetes mellitus without complications; Z86.718 Personal history of other venous thrombosis and embolism; Z79.01 Long term (current) use of anticoagulants; Z87.891 Personal history of nicotine dependence; I10 Essential (primary) hypertension; V53.5XXA Driver of pick-up truck or van injured in collision with car, pick-up truck or van in traffic accident, initial encounter; Y93.9 Activity, unspecified; Y92.9 Unspecified place or not applicable; Z86.711 Personal history of pulmonary embolism; Z79.84 Long term (current) use of oral hypoglycemic drugs; Z79.899 Other long term (current) drug therapy; E66.9 Obesity, unspecified; Z68.32 Body mass index [BMI] 32.0-32.9, adult
CPT/HCPCS: 73564; 99284

== ENCOUNTER 2022-06-15 03:55 | Emergency (ER) | payer MEDICAID, SELFPAY ==
[2022-06-15 03:56] VITALS: BP 154/89; PULSE 67; RESP 16; TEMP 35.9; O2SAT 98; BMI 33.0
--- NOTE | 2022-06-15 04:26 | EDS_ITS ---
HPI HPI - URI History of Present Illness Chief Complaint: Cough Informant: patient Narrative Narrative: Patient is a 57-year-old female with history of pulmonary emboli on Xarelto, hypertension diabetes mellitus presenting for flulike symptoms. Patient is presenting with her significant other who suggested that she get checked out as well. Patient states for the past 2 days she has had sore throat, her ears been bothering her, cough with discomfort in her chest/back from all the coughing as well as a possible fever yesterday. She states that she was placed on antibiotics for ear issues about 2 weeks ago with is not improving. His other symptoms are new. Has been taking Tylenol with last dose around 10 PM as well as decongestants [id number]. No other complaints at this time. ROS ROS ED Constitutional Constitutional ED: Reports chills and fever(s) Eyes Eyes: Denies change in vision ENT ENT ED: Reports ear pain, sore throat and other Details: Nasal congestion ; Denies rhinorrhea Cardiovascular Cardiovascular: Reports chest pain Respiratory/Chest Respiratory/Chest: Reports cough; Denies dyspnea or dyspnea on exertion Gastrointestinal Gastrointestinal: Denies abdominal pain, nausea or vomiting Genitourinary Genitourinary ED: Denies dysuria or hematuria Musculoskeletal Musculoskeletal: Denies arthralgias or myalgias Integumentary Denies rash Neurologic Neurologic: Denies paresthesias or weakness Psychiatric Psychiatric: Denies anxiety Hematologic/Lymphatic Hematologic/Lymphatic: Reports easy bleeding and easy bruising [facility] Medical History Diabetes Hypertension Pulmonary embolism Home Medications fluoxetine 20 mg capsule 20 mg PO DAILY DEPRESSION 10/10/19 [History Last Taken 10/10/19] lisinopril 30 mg tablet 30 mg PO DAILY BP 10/10/19 [History Last Taken 10/10/19] metformin 1,000 mg tablet 1,000 mg PO BID DM 10/10/19 [History Last Taken 10/10/19] oxybutynin chloride 10 mg tablet,extended release 24 hr 10 mg PO DAILY BLADDER 10/10/19 [History Last Taken 10/10/19] rivaroxaban 20 mg tablet 20 mg PO DAILY 01/01/20 [History Last Taken Unknown] sitagliptin phosphate 100 mg tablet 100 mg PO DAILY 01/01/20 [History Last Taken Unknown] benzonatate 200 mg capsule 200 mg PO TID PRN cough #20 caps 06/15/22 [Rx Last Taken Unknown] ondansetron 4 mg disintegrating tablet 4 mg PO Q6H PRN nausea and vomiting #10 tabs 06/15/22 [Rx Last Taken Unknown] oseltamivir 75 mg capsule (Tamiflu) 75 mg PO BID 5 days #9 caps 06/15/22 [Rx Last Taken Unknown] Allergy/AdvReac Type Severity Reaction Status Date / Time aspirin [ASA] AdvReac Nausea Verified 06/15/22 03:58 latex AdvReac Itching Verified 06/15/22 03:58 Social History Smoking Status: Former smoker substance use type: does not use EXAM Physical Exam Const Vital Signs: 06/15/22 03:56 Temperature 96.6 F L Temperature Source Temporal Pulse Rate 67 Respiratory Rate 16 Blood Pressure 154/89 H Blood Pressure Mean 110 Pulse Ox 98 Oxygen Delivery Method Room Air Positive well nourished and well developed General Appearance ED: well developed and NAD; Negative for pallor HEENT Reports moist mucous membranes HEENT Narrative: No air-fluid level but there is slight retraction of the bilateral tympanic membranes. No erythema or injection appreciated. normocephalic and atraumatic Throat: posterior oropharynx normal Eyes PERRL and EOMs intact bilaterally Neck supple, no meningeal signs and no JVD Resp normal respiratory effort and clear to auscultation bilaterally Cardio no murmurs Rate: regular rate Rhythm: regular rhythm GI non-tender and non-distended Back/Spine normal ROM Extremity normal to inspection Extremity Narrative: No edema Neuro oriented x3 Neuro Narrative: No focal deficits appreciated Sensorium / Orientation: alert Motor Exam: Negative for general weakness Psych mental status grossly normal Skin General Skin Exam: Negative for pallor Rashes: no rashes MDM MDM MDM Narrative Medical decision making narrative: Patient is evaluated for flulike symptoms. She appears nontoxic no acute distress. Vital signs are normal save her some mild hypertension. Patient begin another dose of Tylenol. COVID and flu test are pending. Given she is only had 2 days of symptoms with clear breath sounds, no tachycardia or tachypnea I do not think a chest x-ray is evaluated. Her chest discomfort seems to be muscle skeletal associated with coughing and I do not think this is ACS. I do not think a cardiac work-up is indicated at this time. Flu test is positive. Patient omar hemodynamically stable in the ER. Given she is within 2 days of symptoms she is a candidate for Tamiflu. Is ordered first dose of this in the emergency room. Will be given a prescription for Zofran as well in case she has some nausea associate with the Tamiflu. Counseled on the risk and benefits of Tamiflu. Counseled return precautions. Patient verbalizes agreement of this plan. Encouraged to continue taking Tylenol and to rest. Encouraged to drink lots of fluids. Lab Data Attestation: I reviewed the patient's lab results. Discharge Plan Triage Chief Complaint: Cough Other Complaint: Sore Throat ED Provider: Chantal Johnson Dx/Rx/DC Orders Clinical Impression: Influenza A Instructions: ED Influenza (Adult) Prescriptions: New oseltamivir [Tamiflu] 75 mg capsule 75 mg PO BID 5 Days Qty: 9 0RF Rx Instructions: First dose given in the ER ondansetron 4 mg tablet,disintegrating 4 mg PO Q6H PRN (Reason: nausea and vomiting) Qty: 10 0RF benzonatate 200 mg capsule 200 mg PO TID PRN (Reason: cough) Qty: 20 0RF No Action oxybutynin chloride 10 MG tablet extended release 24hr 10 mg PO DAILY metformin 1,000 MG tablet 1,000 mg PO BID lisinopril 30 MG tablet 30 mg PO DAILY fluoxetine 20 MG capsule 20 mg PO DAILY sitagliptin phosphate 100 MG tablet 100 mg PO DAILY rivaroxaban 20 MG tablet 20 mg PO DAILY Stand Alone Forms: ED Work / School Excuse Primary Care Provider: Talib Heredia Referrals: Talib Heredia DO [Primary Care Provider] - Disposition Disposition: Home, Self Care
[2022-06-15] MEDS: Acetaminophen 325 MG Tablet 650 MG PO (04:27)
[2022-06-15] MEDS: Oseltamivir Phosphate 75 MG Capsule PO (05:20)
== END 2022-06-15 05:24 | disposition home or self-care (01) ==
PROVIDERS: Emergency Provider Emergency Medicine; PCP Student in an Organized Health Care Education/Training Program; Visit Provider Emergency Medicine
DX: J10.1 Influenza due to other identified influenza virus with other respiratory manifestations (principal); E11.9 Type 2 diabetes mellitus without complications; I10 Essential (primary) hypertension; Z87.891 Personal history of nicotine dependence; Z79.899 Other long term (current) drug therapy; Z79.84 Long term (current) use of oral hypoglycemic drugs; Z86.711 Personal history of pulmonary embolism
CPT/HCPCS: 87428; 99283

== ENCOUNTER 2022-08-25 10:54 | Emergency (ER) | payer OTHER, MEDICAID, SELFPAY ==
[2022-08-25 10:58] VITALS: BP 104/75; PULSE 71; RESP 18; TEMP 36.4; O2SAT 97
[2022-08-25 11:13] VITALS: BP 134/84; PULSE 74; RESP 18; O2SAT 96; BMI 32.6
--- NOTE | 2022-08-25 11:42 | RAD_ITS ---
EXAM: XR LUMBOSACRAL SPINE, 2 OR 3 VIEWS CLINICAL INDICATION: fall/pain TECHNIQUE: Frontal and lateral views of the lumbar spine and sacrum. This report was created using [employer] report [employer] technology. COMPARISON: None. FINDINGS: VERTEBRAE: Mild to moderate anterior wedging of the upper L3 vertebral body. Minimal anterior wedging of L2 superior endplate. Mild degenerative anterolisthesis of L3 on L4. Nearly grade 1 degenerative retrolisthesis of L4 on L5. No spondylolisthesis. Preservation of the normal lumbar lordosis. No significant facet arthropathy. DISC SPACES: No acute findings. Normal lumbar disc space heights. GASTROINTESTINAL TRACT: Unremarkable as visualized. Included bowel gas pattern is non-obstructive. RAD/Lumbar Spine 2 or 3 Views IMPRESSION: 1. Mild to moderate anterior wedge compression fracture of the upper L4 vertebral body. This may not be recent but I am not certain. CT will help clarify if patient has debilitating back pain and kyphoplasty is a therapeutic consideration. 2. Minimal anterior wedging of the L2 superior endplate. Age is indeterminate. CT will help clarify. 3. Newly grade 1 degenerative retrolisthesis of L4 on L5. 4. Mild degenerative anterolisthesis of L3 on L4. Electronically Signed: Alvaro Gannon MD at 14:29 EST ,
[2022-08-25] MEDS: traMADol 50 MG Tablet PO (11:50)
--- NOTE | 2022-08-25 12:30 | RAD_ITS ---
EXAM: XR RIGHT HIP WITH PELVIS WHEN PERFORMED, 2 OR 3 VIEWS CLINICAL INDICATION: Fall injury with pain. TECHNIQUE: Two or three views of the right hip with pelvis when performed. This report was created using [employer] report generation technology. COMPARISON: None. FINDINGS: BONES/JOINTS: Unremarkable. No displaced fracture. No destructive or sclerotic lesions. Note that overlapping bowel shadows may however obscure fine detail. Sacroiliac joint is unremarkable. No widening of the pubic symphysis. The articular structures are unremarkable. SOFT TISSUES: Unremarkable. No soft tissue swelling or gas. RAD/HIP, UNI W/ Pelvis 2-3 Views IMPRESSION: Normal radiographs of the pelvis and right hip. Electronically Signed: Alvaro Gannon MD at 13:43 EST ,
[2022-08-25 12:37] VITALS: BP 133/85; PULSE 74; RESP 18; O2SAT 96
[2022-08-25 14:00] VITALS: BP 133/84; PULSE 83
--- NOTE | 2022-08-25 14:18 | ED.VIS.FALL ---
HPI HPI - Fall History of Present Illness Chief Complaint: Fall Informant: patient Occured/Mechanism Occurred: Today Mechanism/Context: Yes same level fall Narrative Narrative: Patient was at work today, she was standing in her bosses office, talking to her. Her boss stood up from her chair and as a result the patient stepped back, but lost her footing and fell to her buttocks against the floor which was carpeted. She had immediate pain in her right posterior aspect of her hip/buttock as well as her low back and her spine. No weakness in her legs or bowel or bladder dysfunction, she feels like she may have some numbness in her legs. It is mild. No other injuries. She has been able to stand and bear weight after this. [facility] Medical History Diabetes Hypertension Pulmonary embolism Home Medications fluoxetine 20 mg capsule 20 mg PO DAILY DEPRESSION 10/10/19 [History Last Taken 10/10/19] lisinopril 30 mg tablet 30 mg PO DAILY BP 10/10/19 [History Last Taken 10/10/19] metformin 1,000 mg tablet 1,000 mg PO BID DM 10/10/19 [History Last Taken 10/10/19] oxybutynin chloride 10 mg tablet,extended release 24 hr 10 mg PO DAILY BLADDER 10/10/19 [History Last Taken 10/10/19] rivaroxaban 20 mg tablet 20 mg PO DAILY 01/01/20 [History Last Taken Unknown] sitagliptin phosphate 100 mg tablet 100 mg PO DAILY 01/01/20 [History Last Taken Unknown] benzonatate 200 mg capsule 200 mg PO TID PRN cough #20 caps 06/15/22 [Rx Last Taken Unknown] ondansetron 4 mg disintegrating tablet 4 mg PO Q6H PRN nausea and vomiting #10 tabs 06/15/22 [Rx Last Taken Unknown] oseltamivir 75 mg capsule (Tamiflu) 75 mg PO BID 5 days #9 caps 06/15/22 [Rx Last Taken Unknown] hydrocodone-acetaminophen 5-325mg 5mg-325mg 1 tab PO Q4H PRN PRN Pain 2 days #10 TABLETS 08/25/22 [Rx Last Taken Unknown] Allergy/AdvReac Type Severity Reaction Status Date / Time aspirin [ASA] AdvReac Nausea Verified 08/25/22 11:00 latex AdvReac Itching Verified 08/25/22 11:00 Family History no significant family his Social History Smoking Status: Former smoker substance use type: does not use ROS ROS ED Constitutional Constitutional ED: Denies chills or fever(s) Gastrointestinal Gastrointestinal: Denies abdominal pain, constipation, fecal incontinence, nausea or vomiting Genitourinary Genitourinary ED: Reports other Details: no urinary retention ; Denies abdominal discomfort or urinary incontinence Musculoskeletal Musculoskeletal: Reports as per HPI, back pain and extremity pain; Denies neck pain Integumentary Denies rash or wounds Neurologic Neurologic: Reports paresthesias; Denies headache(s) or weakness EXAM Physical Exam Const Vital Signs: 08/25/22 10:58 08/25/22 11:13 08/25/22 11:13 Temperature 97.5 F L Temperature Source Temporal Pulse Rate 71 74 Respiratory Rate 18 18 Respiratory Effort Normal Non-Labored Respiratory Depth Normal Respiratory Pattern Normal Blood Pressure 104/75 134/84 H Blood Pressure Mean 84 100 Pulse Ox 97 96 96 Oxygen Delivery Method Room Air Room Air Room Air 08/25/22 12:37 08/25/22 14:00 Temperature Temperature Source Pulse Rate 74 83 Respiratory Rate 18 Respiratory Effort Respiratory Depth Respiratory Pattern Blood Pressure 133/85 H 133/84 H Blood Pressure Mean 101 100 Pulse Ox 96 Oxygen Delivery Method Room Air Positive well nourished, well developed and obese General Appearance ED: well developed and NAD Nutritional Appearance: obese HEENT Negative for trauma or tenderness Eyes PERRL and EOMs intact bilaterally Neck full ROM and supple Chest Wall inspection of chest normal and palpation of chest normal Resp normal respiratory effort and no retractions GI normal to inspection, nondistended, normoactive bowel sounds, soft to palpation and non-tender Back/Spine normal to inspection Back/Spine Narrative: Able to sit up with assistance. Tender distal lumbar midline without palpable step-off, nontender distal to this in the coccyx. No other spinal tenderness all the way to the cranium. Lumbar Spine / Lower Back: ROM limited and lumbar spinal tenderness L4 and L5 Extremity normal to inspection, full ROM and no pedal edema Extremity Narrative: Mild tenderness at the area of the sciatic notch, but not at the greater trochanter of the right hip. Mild tenderness at the right ASIS. Pelvis stable to compression. Neuro oriented x3 and no sensory deficits noted Neuro Narrative: Antalgic gait but able Sensorium / Orientation: alert Motor Exam: strength 5/5 throughout and clonus absent Deep Tendon Reflexes: Rt Patellar (L4): 2+, Lt Patellar (L4): 2+, Rt Ankle (S1): 2+ and Lt Ankle (S1): 2+ Deep Tendon Reflexes Back: Rt Patellar (L4): 2+, Lt Patellar (L4): 2+, Rt Ankle (S1): 2+ and Lt Ankle (S1): 2+ Plantar Reflex: Downgoing: bilateral Psych mental status grossly normal and thought process normal Skin no rashes or lesions noted and no wounds MDM MDM MDM Narrative Medical decision making narrative: Three-view x-ray series of the right hip and pelvis negative on my interpretation, however 3 view x-ray series of the lumbosacral spine on my interpretation appears to show an L4 compression fracture, given where she is having pain and the mechanism I suspect this is acute. She was given analgesics here. She is neurologically intact. Objectively she has no trouble with sensory in the lower extremities. I reviewed the radiologist interpretation. I discussed with Dr. Casanova on for spine, he recommends close outpatient follow-up in the office and lifting/twisting/bending restrictions which were given to her, as well as a prescription for some Roscoe. Radiography Diagnostic Testing: Clinical Impression(s) from Imaging Studies Hip/Pelvis X-Ray 08/25/22 12:30 IMPRESSION: Normal radiographs of the pelvis and right hip. Electronically Signed: Alvaro Gannon MD at 13:43 EST , Discharge Plan Triage Chief Complaint: Fall ED Provider: Constantin Rose Dx/Rx/DC Orders Clinical Impression: Closed compression fracture of L4 vertebra Instructions: Compression Fx Prescriptions: New hydrocodone-acetaminophen [hydrocodone-acetaminophen] 5-325 mg tablet 1 tab PO Q4H PRN PRN (Reason: Pain) 2 Days Qty: 10 0RF No Action oxybutynin chloride 10 MG tablet extended release 24hr 10 mg PO DAILY metformin 1,000 MG tablet 1,000 mg PO BID lisinopril 30 MG tablet 30 mg PO DAILY fluoxetine 20 MG capsule 20 mg PO DAILY sitagliptin phosphate 100 MG tablet 100 mg PO DAILY rivaroxaban 20 MG tablet 20 mg PO DAILY oseltamivir [Tamiflu] 75 mg capsule 75 mg PO BID 5 Days Qty: 9 0RF Rx Instructions: First dose given in the ER ondansetron 4 mg tablet,disintegrating 4 mg PO Q6H PRN (Reason: nausea and vomiting) Qty: 10 0RF benzonatate 200 mg capsule 200 mg PO TID PRN (Reason: cough) Qty: 20 0RF Primary Care Provider: Talib Heredia Referrals: Talib Heredia DO [Primary Care Provider] - Isidoro Casanova DO [Med Staff - Active Staff] - As soon as possible (call for appt) Disposition Disposition: Home, Self Care
[2022-08-25 14:51] VITALS: BP 141/84; PULSE 79; RESP 18; O2SAT 94
== END 2022-08-25 15:04 | disposition home or self-care (01) ==
PROVIDERS: Emergency Provider Emergency Medicine; PCP Student in an Organized Health Care Education/Training Program; Visit Provider Emergency Medicine
DX: S32.049A Unspecified fracture of fourth lumbar vertebra, initial encounter for closed fracture (principal); E11.9 Type 2 diabetes mellitus without complications; W01.0XXA Fall on same level from slipping, tripping and stumbling without subsequent striking against object, initial encounter; Y93.89 Activity, other specified; Y99.0 Civilian activity done for income or pay; I10 Essential (primary) hypertension; Z79.84 Long term (current) use of oral hypoglycemic drugs; Z79.899 Other long term (current) drug therapy; Z87.891 Personal history of nicotine dependence
CPT/HCPCS: 72100; 73502; 99284

== ENCOUNTER → 2022-09-09 | Outpatient (CLI) | payer OTHER, MEDICAID, SELFPAY ==
--- NOTE | 2022-09-09 07:45 | MRI_ITS ---
STUDY: MRI LUMBAR SPINE WITHOUT CONTRAST REASON FOR EXAM: Female, 57 years old. Fall injury with L4 lumbar fracture. TECHNIQUE: Standardized fat and water weighted pulse sequences were obtained in the sagittal and axial planes. COMPARISON: Lumbar spine radiographs 08/25/2022. FINDINGS: T11-T12: (Sagittal only). Normal endplates. Mild disc space height narrowing. No ventral extradural defect. Normal central canal and bilateral intervertebral neural foramina. T12-L1: (Sagittal only). Normal endplates. Normal disc height, hydration and morphology. Normal central canal and bilateral intervertebral neural foramina. Normal lumbar lordosis. There is no substantial scoliosis. Normal conus medullaris that terminates at the lower L1 vertebral body level. L1-2: Normal L1 inferior endplate. Mild anterior wedge compression fracture of the upper L2 vertebral body with abnormal bony edema across the upper L2 vertebral body extending to the right L2 pedicle. Mild disc space height narrowing with small posterior bulging annulus. Normal facet joints. Normal central canal and bilateral lateral recesses. Normal bilateral intervertebral neural foramina. L2-3: Normal endplates. Normal disc height, hydration and morphology. Normal bilateral facet joints. Normal central canal and bilateral lateral recesses. Normal bilateral intervertebral neural foramina. L3-4: Normal L3 inferior endplate. Moderate anterior wedge compression fracture of the upper L4 vertebral body with moderate amount of bone edema in the right side of the vertebral body extending to underneath the left side of the L4 superior endplate. The bony edema also extends into the right L4 pedicle but not the left. Mild anterolisthesis of L3 on L4. Moderate asymmetric degenerative facet arthropathy, left greater than right. Prominent dorsal epidural lipomatosis. Moderate central canal stenosis with an AP canal diameter of 8 mm. Normal bilateral lateral recesses. Normal bilateral intervertebral neural foramina. L4-5: Normal endplates. Normal disc height, hydration and morphology. Normal bilateral facet joints. Normal central canal and bilateral lateral recesses. Normal bilateral intervertebral neural foramina. L5-S1: Normal endplates. Normal disc height, hydration and morphology. Normal bilateral facet joints. Normal central canal and bilateral lateral recesses. Normal bilateral intervertebral neural foramina. Normal visualized sacral ala. Normal visualized paraspinous soft tissue structures. MRI/Spine Lumbar (Routine) IMPRESSION: 1. Moderate recent anterior wedge compression fracture of the upper L4 vertebral body with abnormal bone marrow edema in the right side of the L4 vertebral body more than the left side and edema extending to the right L4 pedicle. Additionally, mild anterolisthesis of L3 on L4 and moderate central canal stenosis with an AP canal diameter of 8 mm. This is feasible for kyphoplasty if patient has debilitating back pain referable to this site. 2. Mild recent anterior wedge compression fracture across the upper L1-2 vertebral body with very minimal loss of the upper anterior vertebral body height. The bony edema extensive right L2 pedicle. This is feasible for kyphoplasty if patient has debilitating back pain at this level. 3. No MRI evidence of lumbar disc extrusion or disc protrusion. Electronically Signed: Alvaro Gannon MD at 14:41 EDT ,
== END | disposition home or self-care (01) ==
LOC: MRI 07:32
PROVIDERS: PCP Student in an Organized Health Care Education/Training Program; Referring Provider Orthopaedic Surgery; Visit Provider Orthopaedic Surgery
DX: S32.040A Wedge compression fracture of fourth lumbar vertebra, initial encounter for closed fracture (principal); M51.36 Other intervertebral disc degeneration, lumbar region; M40.56 Lordosis, unspecified, lumbar region
CPT/HCPCS: 72148

== ENCOUNTER 2022-09-24 09:48 | Emergency (ER) | payer MEDICAID, SELFPAY ==
[2022-09-24 09:49] VITALS: BP 151/98; PULSE 102; RESP 18; TEMP 35.7; O2SAT 98; BMI 32.5
--- NOTE | 2022-09-24 09:58 | RAD_ITS ---
STUDY: X-RAY CHEST REASON FOR EXAM: Female, 57 years old. Chest pain TECHNIQUE: Single AP portable view of the chest. COMPARISON: Comparison is made with prior study dated October 10, 2019. FINDINGS: EKG electrodes are seen. The lungs are clear and expanded. There is no demonstrated pleural abnormality. Normal size heart. Normal mediastinum and kadie. Normal visualized pulmonary arteries. There is atherosclerotic tortuosity of the aortic arch and descending thoracic aorta. Normal visualized thoracic spine. Normal visualized ribs, clavicles, and shoulders. There is no demonstrated abnormality of the visualized soft tissue structures of the upper abdomen. RAD/Chest 1 View (Portable) IMPRESSION: Normal x-ray examination of the chest. Electronically Signed: Emanuel Ghosh MD at 10:43 EDT ,
--- NOTE | 2022-09-24 09:58 | EDS_ITS ---
HPI History of Present Illness Chief Complaint: Shortness of Breath Narrative Narrative: 57-year-old female presenting with shortness of breath. Patient reports a compression fracture about a month ago. She has been somewhat debilitated over the course of the month. She states that she just started getting up and around again and she feels a little bit short of breath she denies chest pain. Denies lightheadedness or dizziness. 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 She has not had to stop her medication for any reason. Patient states she called her primary care physician who wanted her to come to the emergency room to be evaluated for PE. [facility] Medical History (Updated 09/24/22 @ 10:03 by Aye Cross) Compression fracture Diabetes Hypertension Pulmonary embolism Home Medications fluoxetine 20 mg capsule 20 mg PO DAILY DEPRESSION 10/10/19 [History Last Taken 10/10/19] lisinopril 30 mg tablet 30 mg PO DAILY BP 10/10/19 [History Last Taken 10/10/19] metformin 1,000 mg tablet 1,000 mg PO BID DM 10/10/19 [History Last Taken 10/10/19] oxybutynin chloride 10 mg tablet,extended release 24 hr 10 mg PO DAILY BLADDER 10/10/19 [History Last Taken 10/10/19] rivaroxaban 20 mg tablet 20 mg PO DAILY 01/01/20 [History Last Taken Unknown] sitagliptin phosphate 100 mg tablet 100 mg PO DAILY 01/01/20 [History Last Taken Unknown] benzonatate 200 mg capsule 200 mg PO TID PRN cough #20 caps 06/15/22 [Rx Last Taken Unknown] ondansetron 4 mg disintegrating tablet 4 mg PO Q6H PRN nausea and vomiting #10 tabs 06/15/22 [Rx Last Taken Unknown] oseltamivir 75 mg capsule (Tamiflu) 75 mg PO BID 5 days #9 caps 06/15/22 [Rx Last Taken Unknown] hydrocodone-acetaminophen 5-325mg 5mg-325mg 1 tab PO Q4H PRN PRN Pain 2 days #10 TABLETS 08/25/22 [Rx Last Taken Unknown] Allergy/AdvReac Type Severity Reaction Status Date / Time aspirin [ASA] AdvReac Nausea Verified 09/24/22 09:52 latex AdvReac Itching Verified 09/24/22 09:52 Social History Smoking Status: Former smoker substance use type: does not use ROS ROS ED Constitutional Constitutional ED: Denies chills or fever(s) Eyes Eyes: Denies change in vision ENT ENT ED: Denies rhinorrhea or sore throat Cardiovascular Cardiovascular: Denies chest pain Respiratory/Chest Respiratory/Chest: Reports dyspnea and dyspnea on exertion Gastrointestinal Gastrointestinal: Denies abdominal pain Genitourinary Genitourinary ED: Denies dysuria or hematuria Musculoskeletal Musculoskeletal: Denies arthralgias Integumentary Denies abscess Neurologic Neurologic: Denies headache(s) EXAM Physical Exam Const Vital Signs: 09/24/22 09:49 09/24/22 09:59 09/24/22 09:59 Temperature 96.2 F L Temperature Source Temporal Pulse Rate 102 H 86 Respiratory Rate 18 24 H Respiratory Effort Normal Non-Labored Respiratory Depth Normal Respiratory Pattern Normal Blood Pressure 151/98 H 149/90 H Blood Pressure Mean 115 109 Pulse Ox 98 97 Oxygen Delivery Method Room Air Room Air Room Air 09/24/22 10:04 Temperature Temperature Source Pulse Rate Respiratory Rate Respiratory Effort Respiratory Depth Respiratory Pattern Blood Pressure Blood Pressure Mean Pulse Ox Oxygen Delivery Method Room Air Positive well nourished General Appearance ED: NAD; Negative for pallor HEENT Reports moist mucous membranes Eyes PERRL and EOMs intact bilaterally Resp normal respiratory effort and clear to auscultation bilaterally Auscultation: Negative for rales, rhonchi or wheezes Cardio Rate: tachycardic Neuro oriented x3 and CN's II-XII intact bilaterally Sensorium / Orientation: alert Motor Exam: strength 5/5 throughout Psych mental status grossly normal Skin no wounds General Skin Exam: Negative for jaundice or pallor MDM MDM MDM Narrative Medical decision making narrative: Patient presenting to the ER with dyspnea. She reports recent compression fracture and debility but she has been up and around recently and states she feels a little more short of breath than usual. She is not having any chest farhan n. She does have history of factor V deficiency and PE but she is fully anticoagulated on Xarelto and has not missed any doses. She does not have any chest pain. She reports that her primary care physician sent her in to rule out PE. Differential diagnosis at this point includes but is not limited to pneumonia, ACS, CHF, debility, PE. High-sensitivity troponin and EKG to assess for ischemia or dysrhythmia. CBC to assess white blood cell count, hemoglobin, platelets, differential. BMP to assess renal function, electrolytes, glucose, anion gap. Chest x-ray to rule out pneumonia or other acute findings. After discussion with the patient I think is unlikely that she has a PE. She does express some concern because her primary care physician told her she might have 1. She has not missed any doses of her Xarelto. We determined we would use a D-dimer. Patient comfortable with this. CBC unremarkable. BMP shows normal renal function electrolytes. Glucose slightly elevated 177 without anion gap. High-sensitivity troponin is 5. D-dimer negative. Chest x-ray my interpretation shows no acute cardiopulmonary process. Radiologist are persistent agrees EKG shows sinus rhythm at a rate of 89 bpm without ischemia or dysrhythmia. No STEMI. Patient has ultimately negative work-up. I feel that she is likely debilitated secondary to her compression fracture. I do not believe she is a CTA. Patient given instructions to follow-up with her PCP. Impression: 1. Dyspnea. 2. Debility Lab Data Labs: Laboratory Results - last 24 hr 09/24/22 09/24/22 09/24/22 10:00 10:00 10:00 WBC 8.7 RBC 4.83 Hgb 14.7 Hct 43.5 MCV 90.1 MCH 30.4 MCHC 33.8 RDW Std Deviation 44.8 H RDW Coeff of Myranda 13.7 Plt Count 284 MPV 9.0 Immature Gran % (Auto) 0.200 Neut % (Auto) 67.5 Lymph % (Auto) 22.5 [place] % (Auto) 6.9 Eos % (Auto) 2.3 Baso % (Auto) 0.6 Absolute Neuts (auto) 5.9 Absolute Lymphs (auto) 1.96 Nucleated RBC % 0 D-Dimer Quant (PE/DVT) < 0.27 L Sodium 136 Potassium 4.2 Chloride 105 Carbon Dioxide 24.0 Anion Gap 7 BUN 15 Creatinine 0.79 Estim Creat Clear Calc 77.35 Est GFR (MDRD) Af Amer 96 Est GFR (MDRD) Non-Af 79 BUN/Creatinine Ratio 19.0 Glucose 177 H Calcium 9.5 Troponin I High Sens 5 Radiography Diagnostic Testing: Clinical Impression(s) from Imaging Studies Chest X-Ray 09/24/22 09:58 IMPRESSION: Normal x-ray examination of the chest. Electronically Signed: Emanuel Ghosh MD at 10:43 EDT , Discharge Plan Triage Chief Complaint: Shortness of Breath ED Provider: Fabian Trevizo Dx/Rx/DC Orders Instructions: ED Dyspnea Prescriptions: No Action oxybutynin chloride 10 MG tablet extended release 24hr 10 mg PO DAILY metformin 1,000 MG tablet 1,000 mg PO BID lisinopril 30 MG tablet 30 mg PO DAILY fluoxetine 20 MG capsule 20 mg PO DAILY sitagliptin phosphate 100 MG tablet 100 mg PO DAILY rivaroxaban 20 MG tablet 20 mg PO DAILY oseltamivir [Tamiflu] 75 mg capsule 75 mg PO BID 5 Days Qty: 9 0RF Rx Instructions: First dose given in the ER ondansetron 4 mg tablet,disintegrating 4 mg PO Q6H PRN (Reason: nausea and vomiting) Qty: 10 0RF benzonatate 200 mg capsule 200 mg PO TID PRN (Reason: cough) Qty: 20 0RF hydrocodone-acetaminophen [hydrocodone-acetaminophen] 5-325 mg tablet 1 tab PO Q4H PRN PRN (Reason: Pain) 2 Days Qty: 10 0RF Primary Care Provider: Talib Heredia Referrals: Talib Heredia DO [Primary Care Provider] - Disposition Disposition: Home, Self Care
[2022-09-24 09:59] VITALS: BP 149/90; PULSE 86; RESP 24; O2SAT 97
[2022-09-24 10:13] LABS: Absolute Lymphocyte Count 1.96 X10^3/uL (0.83-4.51); Absolute Neutrophil Count 5.9 X10^3/uL (2.0-7.7); Basophil# 0.05 X10^3/uL; Basophil% 0.6 % (0-1); Eosinophils% 2.3 % (0-5); Hematocrit 43.5 % (37-47); Hemoglobin 14.7 g/dL (12.0-15.0); Lymphocyte # 1.96 X10^3/ul (0.83-4.51); Lymphocyte % 22.5 % (19-41); Mean Corp Hgb Conc 33.8 g/dL (32-36); Mean Corpuscular Hgb 30.4 pg (27.0-32.0); Mean Corpuscular Volume 90.1 fL (81-99); Monocyte% 6.9 % (0-10); NRBC Flagged by Analyzer 0 % (0-5); Neutrophil # 5.89 X10^3/uL (2.7-7.7); Neutrophil % 67.5 % (47-70); Platelet Count 284 K/mm3 (150-450); RBC Distribution Width CV 13.7 % (11.6-14.6); RBC Distribution Width SD 44.8 fl (35.1-43.9); Red Blood Count 4.83 M/mm3 (4.2-5.4); White Blood Count 8.7 K/mm3 (4.4-11.0)
[2022-09-24 10:36] LABS: Anion Gap 7 (5-15); BUN 15 mg/dL (7-18); Calcium,Total 9.5 mg/dL (8.5-10.1); Chloride 105 mmol/L (98-107); Creatinine, Serum 0.79 mg/dL (0.55-1.02); EST Glomerular Filtration Rate 79 mL/min (>60); Est Glom Filt Rate - Afr Amer 96 mL/min (>60); Estimated Creatinine Clearance 77.35 ml/min; Glucose 177 mg/dL (74-106); Potassium 4.2 mmol/L (3.5-5.1); Sodium Level 136 mmol/L (136-145); Troponin-I HS 5 pg/mL (3.0-54.0)
[2022-09-24 11:10] LABS: D-Dimer Quantitative (DVT/PE) < 0.27 FEU/ug/m (0.27-0.49)
== END 2022-09-24 11:29 | disposition home or self-care (01) ==
PROVIDERS: Emergency Provider Student in an Organized Health Care Education/Training Program; PCP Student in an Organized Health Care Education/Training Program; Referring Provider Student in an Organized Health Care Education/Training Program; Visit Provider Student in an Organized Health Care Education/Training Program
DX: R06.00 Dyspnea, unspecified (principal); E11.65 Type 2 diabetes mellitus with hyperglycemia; Z87.891 Personal history of nicotine dependence; R53.81 Other malaise; I10 Essential (primary) hypertension; Z79.01 Long term (current) use of anticoagulants; Z86.711 Personal history of pulmonary embolism; Z79.899 Other long term (current) drug therapy; Z79.84 Long term (current) use of oral hypoglycemic drugs
CPT/HCPCS: 71045; 80048; 84484; 85025; 85379; 93005; 99284; A4216

== ENCOUNTER 2022-11-24 10:03 | Outpatient (RCR) | payer MEDICAID, SELFPAY ==
--- NOTE | 2022-11-24 10:52 | HP.PTEVAL2 ---
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 Gael Cohn MD with a diagnosis of . Date of Evaluation: Physical Therapist: NEY Limon - Subjective Subjective: This document was created in error - Anticipated Interventions Thank you for the opportunity to evaluate your patient. For Medicare and Medicare HMO plans, please review the plan of care and approve it. It will need to be FAXED BACK to us at [phone] for Medicare purposes. For Medicare only, by signing this I certify the plan of care. Please let me know if there are questions or concerns regarding this plan of care. Physician Signature: Date:
--- NOTE | 2022-11-24 10:57 | HP.PTEVAL ---
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 Gael Cohn MD with a diagnosis of Cervicalgia, Ataxia, abnormality of gait. Date of Evaluation: 11/24/22 Physical Therapist: NEY Limon - Visit Plan Frequency: 2x /Week Duration: 6 Weeks Plan: 2X/ week for 6 weeks for gentle chin tucks, neck stretches, c-spine ROM and postural exercises as well as balance exercises (especially using foam and EC), gait training with HEP. HEP: pt will try gentle supine chin tucks when she has a SANTAMARIA and see if that helps them to subside - Subjective Pt is being seen also here for a separate WC issue. She is here for her neck. She says that there is a spot on her neck that really hurts and she needs an MRI and needs PT before that can happen. She also has SANTAMARIA (1-2 X/ week and point to base of neck and up through her head and they last a few hours and she takes Tylenol and rests if she can). She has tingling in her L leg which she reports is coming from her back and no really N&T in her arms. She has not weakness in her arms. She is having issues walking and her balance is way off. She has not had X-ray of her neck yet. She is sleeping off and on because of her back. She has dizziness when she stands up and it has gotten a little worse over the last few months. 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 - Pain Neck pain Pain Intensity (Out of 10): 3 SANTAMARIA Pain Intensity (Out of 10): 0 - Objective Gait: Walks with a straight cane with slight veering occ. She takes smaller steps. FGA: 15. CATSIB: 110. Heel and Toe raises: she is able to heel raise and toe raise (50% normal ROM). Stairs: up and down recip with 1 hand rail ascending and 2 hand rails descending. Sit to stand: Able to get up slowly with her hands on her legs to get up on first attempt but did it slowly. C-spine AROM: flexion 50%, Ext 25%, R and L rotation 75%, SB B 75%. UE MMT: R shoulder flexion 6.3 and L 9.5. R shoulder ABD 8.7 and L 10.4. R shoulder ER 12.6 and L 16.7. R shoulder IR 13.6 and L 16.7. Bicep reflexes: 2+/3. Supine chin tucks X 10 (Pt felt the stretch up the back of the neck). - Balance/Special Test Scores Functional Gait Assessment Score: 15 % Disability: 50.0000 CATSIB Score (Max score 120 seconds): 110 Oswestry Neck Score: 23 - Goals Goal 1:: I HEP Goal Time Frame: 6-8 Weeks Goal 2:: Decrease neck pain with doing things around the house Goal Time Frame: 6-8 Weeks Goal 3:: Increase CATSIB to 120/120 (110 at eval) Goal Time Frame: 6-8 Weeks Goal 4:: Increase balance by increase FGA score (score was 15) at eval Goal Time Frame: 6-8 Weeks Goal 5:: Increase C-spine AROM (At time of eval: C-spine AROM: flexion 50%, Ext 25%, R and L rotation 75%, SB B 75%). Goal Time Frame: 6-8 Weeks - Rehabilitation Potential Rehabilitation Potential: Good - Anticipated Interventions Patient/Client Instruction: Educate patient on: Condition, Plan of Care For the Purpose of:: To decrease pain, To increase ROM, To improve nutrient delivery to tissue, To increase oxygenation perfusion, To improve muscle performance and motor function, To improve ability to perform ADL's, To increase tolerance to activity/condition/position, To improve performance and independence with ADL's, To decrease level of supervision to perform tasks, To improve ability of physical actions for home/community/work/leisure, To improve gait and locomotor functions, To improve health of tissue, To decrease soft tissue restriction, To increase flexibility/ROM, To improve balance, To improve safety with gait Therapeutic Exercise to Include: Strength training, Endurance training, Body mechanics, Postural training, Neuromotor development, Passive ROM, Active ROM, Scapular Strength/Stabilization For the Purpose of:: To decrease pain, To increase ROM, To improve nutrient delivery to tissue, To increase oxygenation perfusion, To improve muscle performance and motor function, To improve ability to perform ADL's, To increase tolerance to activity/condition/position, To improve performance and independence with ADL's, To decrease level of supervision to perform tasks, To improve ability of physical actions for home/community/work/leisure, To improve gait and locomotor functions, To improve health of tissue, To decrease soft tissue restriction, To increase flexibility/ROM, To improve balance, To improve safety with gait Functional Training to Include: Gait training For the Purpose of:: To improve gait and locomotor functions, To improve safety with gait Manual Therapy Techniques to Include: Passive ROM, Soft tissue mobilization For the Purpose of:: To decrease pain, To increase ROM, To improve nutrient delivery to tissue, To improve muscle performance and motor function, To improve health of tissue, To decrease soft tissue restriction, To increase flexibility/ROM Thank you for the opportunity to evaluate your patient. For Medicare and Medicare HMO plans, please review the plan of care and approve it. It will need to be FAXED BACK to us at [phone] for Medicare purposes. For Medicare only, by signing this I certify the plan of care. Please let me know if there are questions or concerns regarding this plan of care. Physician Signature: Date:
== END 2022-11-24 19:00 | disposition home or self-care (01) ==
LOC: PT 10:03
PROVIDERS: PCP Student in an Organized Health Care Education/Training Program; Referring Provider Psychiatry & Neurology Sleep Medicine; Visit Provider Psychiatry & Neurology Sleep Medicine
DX: M54.2 Cervicalgia (principal); R27.0 Ataxia, unspecified; R26.9 Unspecified abnormalities of gait and mobility
CPT/HCPCS: 97162

== ENCOUNTER 2023-01-14 16:00 | Outpatient (RCR) | payer OTHER, MEDICAID, SELFPAY ==
--- NOTE | 2022-10-26 19:07 | HP.PTEVAL_ITS ---
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 Isidoro Casanova DO with a diagnosis of WEDGE COMPRESSION FRCATURE OF 4TH AND 2ND LUMBAR VERTEBRA. Date of Evaluation: 10/26/22 Physical Therapist: Carson Malagon, PT, Cert MDT, OCS - Visit Plan Frequency: 2x /Week Duration: 6 Weeks Plan: LUMBAR BRACE EAGLE. PT INTERVETIONS DLS ,POSTURAL EX'S ,BLE STRENGTENING , AND FUNCTIONAL STRENGTHENING - Subjective This 57 y/o female presents to physical therapy for compression fractures L2 and L4. Patient fell at work 08/25/22 backed up and landed on buttock caused immediate pain. Patient went ER via ambulance [facility] had x-rays , then f/u DR delvalle looked at x-rays showed compression fractures. Patient placed in lumbar brace and seen DR 2 weeks ago and want 2 more weeks back brace and then start PT. Patient able to wean brace as tolerated. Patient has no pain. Denies paresthesia/tingling -. Coughing/sneezing -. Bowel/bladder-. Aggravating factors lifting ,standing ,bending ,walking causes burning. Alleviating factors rest ,sitting. Due to pain patient uses cane. Patient able to sleep good at night. Patient pain and condition affects QOL /housework and unable to return to work. GOALS to RTW. Tentative RTW December 07. SOCAIL: Partner. VOCATION: [employer] - Pain Bilateral Back Pain Intensity (Out of 10): 2 Pain Intensity Range: 10 - Objective POSTURE: mild forward posture. GAIT: ambulates with straight cane with 2 point gait. PALAPTION: tender L-S. SYMMTRIES : align. NEURO: intact. MMT: quads/hams 4/5 ,hip flexion 4-/5 ankle 4/5. LUMBAR ROM: flexion mod loss ,extension severe loss ,side glides mod loss. FLEXABLITY: hamstrings WFL - Special Tests L/S Slump test left side: Negative L/S Slump test right side: Negative L/S Left Straight Leg Raise: Negative L/S Right Straight Leg Raise: Negative - Balance/Special Test Scores Oswestry Low Back Score: 35 - Goals Goal 1:: Patient to be I with HEP Goal Time Frame: 4-6 Weeks Goal 2:: Patient to demonstrate 50% improvement with improved function with less pain Goal Time Frame: 4-6 Weeks Goal 3:: Patient to improve lumbar ROM for function of recovery for job demands Goal Time Frame: 4-6 Weeks Goal 4:: Patient normalize gait without cane to RTW Goal 5:: Patient to improve back oswestry score by 5 points to improve QOL and function. Goal Time Frame: 4-6 Weeks - Rehabilitation Potential Physical Therapy Diagnosis: This patient has lumbar pain from trauma falling causing compression fractures with decrease ROM lumbar ,decrease gait using cane and weakness thus benefit from skilled PT Rehabilitation Potential: Good - Anticipated Interventions Patient/Client Instruction: Educate patient on: Condition, Plan of Care For the Purpose of:: To decrease pain, To increase ROM, To improve muscle perf ormance and motor function, To improve ability to perform ADL's, To increase tolerance to activity/condition/position, To improve ability of physical actions for home/community/work/leisure, To improve health of tissue, To decrease soft tissue restriction, To increase flexibility/ROM, To improve endurance, To improve balance Therapeutic Exercise to Include: Strength training, Power training, Balance training, Body mechanics, Postural training, Flexibilty training, Dynamic Lumbar Stabilization Comment: BLE Thank you for the opportunity to evaluate your patient. For Medicare and Medicare HMO plans, please review the plan of care and approve it. It will need to be FAXED BACK to us at [phone] for Medicare purposes. For Medicare only, by signing this I certify the plan of care. Please let me know if there are questions or concerns regarding this plan of care. Physician Signature: Date:
--- NOTE | 2023-01-14 16:31 | HP.PTDCSUM ---
Discharge Summary D/C summary: It has been my pleasure to treat SEAN BROWER referred by Dr. Isidoro Casanova DO, with the diagnosis of WEDGE COMPRESSION FRCATURE OF 4TH AND 2ND LUMBAR VERTEBRA for a total of 19 visit(s). Discharge Date: 01/14/23 Please see the following information for a summary of their discharge status. Subjective Subjective: Patient is able to walking which is better Patient condition affects lifting heavy with 2 person lift Patient is able to drive . Sleeping has some difficulty sleeping. Patient is on light duty. Pain Bilateral Back: Pain Intensity (Out of 10): 3 Overall Improvement % Improvement: 50 Objective Objective/Function: POSTURE: WFL . GAIT: reciprocal pattern. PALAPTION: tender L-S. SYMMTRIES : align. NEURO: intact. MMT: quads/hams 4/5 ,hip flexion 4-/5 ankle 4/5. LUMBAR ROM: flexion WFL loss ,extension min/mod loss ,side glides WFL . FLEXABLITY: hamstrings WFL Goals Goal 1:: Patient to be I with HEP Goal Progress: Goal Met Goal 2:: Patient to demonstrate 50% improvement with improved function with less pain Goal Progress: Goal Met Goal 3:: Patient to improve lumbar ROM for function of recovery for job demands Goal Progress: Progressing Goal 4:: Patient normalize gait without cane to RTW Goal Progress: Goal Met Goal 5:: Patient to improve back oswestry score by 5 points to improve QOL and function. Goal Progress: Goal Met Plan Plan: D/C TO HEP D/C Information d/c sentence: If there are questions or concerns regarding this patient's physical therapy, please feel free to call me at [phone]. Thank you for the referral of this patient. Sincerely, Carson Malagon, PT, Cert MDT, OCS Balance/Gait/Functional tests Balance/Special Test Scores Oswestry Low Back Score: 7
== END 2023-01-14 19:00 | disposition home or self-care (01) ==
LOC: PT 16:00
PROVIDERS: PCP Student in an Organized Health Care Education/Training Program; Referring Provider Orthopaedic Surgery; Visit Provider Orthopaedic Surgery
DX: S32.040D Wedge compression fracture of fourth lumbar vertebra, subsequent encounter for fracture with routine healing (principal); S32.020D Wedge compression fracture of second lumbar vertebra, subsequent encounter for fracture with routine healing
CPT/HCPCS: 97110; 97162; 97530

== ENCOUNTER 2023-06-07 16:30 | Outpatient (RCR) | payer MEDICAID, SELFPAY ==
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
--- NOTE | 2023-06-07 17:04 | HP.PTREVAL ---
Re-Evaluation Intro: NAVEED BARRON, It has been my pleasure to treat SEAN BROWER over the last 9 visits for Neck Pain. Please see the progress note below for an update on the physical therapy plan of care! Subjective Subjective: PATIENT STATES ITS A LOT BETTER THAN WHAT IT WAS. I DON'T HAVE THE SANTAMARIA'S MUCH I WAS AND I DON'T NOTICE THAT SPOT ON MY SPINE ANYMORE. PATIENT REPORTS HER NECK ISN'T TENSE IT WAS BEFORE SHE STARTED PT. PATIENT REPORTS NEUROSURGICAL CONSULT RECOMMENDED BY DR. BARRON BUT THAT ALANA'T HAS NOT BEEN SET UP YET. SHE PLANS TO FOLLOW UP WITH HIS OFFICE ABOUT IT. PATIENT REPORTS SHE HASN'T BEEN LIFTING MUCH IN THE LAST FEW DAYS WHICH HAS HELPED HER NECK A LOT. PATIENT REPORTS PT HAS REALLY HELPED A LOT TOO AND SHE REPORTS COMPLIANCE WITH HER HEP. PATIENT REPORTS SHE IS SITTING UP STRAIGHTER ESPECIALLY IN THE CAR. SHE STATES SHE FEELS READY FOR DISCHARGE FROM PT AT THIS TIME. Objective Objective/Function: PATIENT WAS SEEN TODAY FOR RE-ASSESSMENT OF PROGRESS TOWARD THE SET PT GOALS AND THE NEED FOR FURTHER PHYSICAL THERAPY VS READINESS FOR DISCHARGE. UPON EXAM TODAY: CERVICAL ROM AND UPPER BODY STRENGTH IS WFL. SHE IS INDEP WITH A HEP AND ABLE TO MAINTAIN PROPER POSTURE CONTORL. ALTHOUGH OSWESTRY SCORE HAS NOT IMPROVED SIGNIFICANTLY SHE APPEARS APPRORIATE FOR DISCHARGE TO [facility] AND IS REQUESTING DISCHARGE. Plan Plan Plan: D/C TO [facility] AND FOLLOW UP WITH DR. BARRON. PATIENT AGREEABLE. Balance/Gait/Functional tests Balance/Special Test Scores Oswestry Neck Score: 20 Goals Goals Goal 1:: Patient will report participation in home exercise program activities a minimum of 5 days per week, as adjunct to skilled physical therapy intervention in preparation for independent home management upon discharge. Goal Time Frame: 4-6 Weeks Goal Progress: Goal Met Goal 2:: Patient will maintain proper posture throughout treatment session to demonstrate increased scapular strength/stabilization to help reduce forward head positioning. Goal Time Frame: 4-6 Weeks Goal Progress: Goal Met Goal 3:: Patient will report no numbness in bilateral hands for 1 week to improve functional ADL's Goal Time Frame: 4-6 Weeks Goal Progress: Goal Met Goal 4:: Patient will report an decrease of 12% on the Oswestry Neck to show minimal clinical significant difference on patients functional outcome measure. Goal Progress: Not Progressing Goal 5:: Patient will report no headaches for 1 week to improve functional ADL's Goal Time Frame: 4-6 Weeks Goal Progress: Goal Met Anticipated Interventions Anticipated Interventions Patient/Client Instruction: Educate patient on: Benefits of Fitness Program Therapeutic Exercise to Include: Strength training, Endurance training, Coordination, Body mechanics, Postural training, Flexibilty training, Neuromotor development, Passive ROM, Active ROM and Scapular Strength/Stabilization For the Purpose of:: To improve muscle performance and motor function Manual Therapy Techniques to Include: Mobilization and Soft tissue mobilization TENS: Yes Cryotherapy (ice pack, ice massage): Yes Thermo therapy (hot pack): Yes Ultrasound (thermal/non thermal): Yes Intermittent cervical traction: Yes Re-Evaluation Ending Re-evaluation ending: Please do not hesitate to contact me at [phone] by phone or if you have questions or concerns regarding this new plan of care! Sincerely, Le [place], PT, Cert MDT
--- NOTE | 2023-09-27 11:29 | HP.PTDCSUM ---
Discharge Summary D/C summary: It has been my pleasure to treat SEAN BROWER referred by NAVEED BARRON, with the diagnosis of Neck Pain for a total of 9 visit(s). Discharge Date: 06/07/23 Please see the following information for a summary of their discharge status. Subjective Subjective: PATIENT STATES ITS A LOT BETTER THAN WHAT IT WAS. I DON'T HAVE THE SANTAMARIA'S MUCH I WAS AND I DON'T NOTICE THAT SPOT ON MY SPINE ANYMORE. PATIENT REPORTS HER NECK ISN'T TENSE IT WAS BEFORE SHE STARTED PT. PATIENT REPORTS NEUROSURGICAL CONSULT RECOMMENDED BY DR. BARRON BUT THAT ALANA'T HAS NOT BEEN SET UP YET. SHE PLANS TO FOLLOW UP WITH HIS OFFICE ABOUT IT. PATIENT REPORTS SHE HASN'T BEEN LIFTING MUCH IN THE LAST FEW DAYS WHICH HAS HELPED HER NECK A LOT. PATIENT REPORTS PT HAS REALLY HELPED A LOT TOO AND SHE REPORTS COMPLIANCE WITH HER HEP. PATIENT REPORTS SHE IS SITTING UP STRAIGHTER ESPECIALLY IN THE CAR. SHE STATES SHE FEELS READY FOR DISCHARGE FROM PT AT THIS TIME. Pain NECK: Pain Intensity (Out of 10): 4 SANTAMARIA: Pain Intensity (Out of 10): 0 back: Pain Intensity (Out of 10): 7 Overall Improvement % Improvement: 80 Objective Objective/Function: PATIENT WAS SEEN TODAY FOR RE-ASSESSMENT OF PROGRESS TOWARD THE SET PT GOALS AND THE NEED FOR FURTHER PHYSICAL THERAPY VS READINESS FOR DISCHARGE. UPON EXAM TODAY: CERVICAL ROM AND UPPER BODY STRENGTH IS WFL. SHE IS INDEP WITH A HEP AND ABLE TO MAINTAIN PROPER POSTURE CONTORL. ALTHOUGH OSWESTRY SCORE HAS NOT IMPROVED SIGNIFICANTLY SHE APPEARS APPRORIATE FOR DISCHARGE TO [facility] AND IS REQUESTING DISCHARGE. Goals Goal 1:: Patient will report participation in home exercise program activities a minimum of 5 days per week, as adjunct to skilled physical therapy intervention in preparation for independent home management upon discharge. Goal Progress: Goal Met Goal 2:: Patient will maintain proper posture throughout treatment session to demonstrate increased scapular strength/stabilization to help reduce forward head positioning. Goal Progress: Goal Met Goal 3:: Patient will report no numbness in bilateral hands for 1 week to improve functional ADL's Goal Progress: Goal Met Goal 4:: Patient will report an decrease of 12% on the Oswestry Neck to show minimal clinical significant difference on patients functional outcome measure. Goal Progress: Not Progressing Goal 5:: Patient will report no headaches for 1 week to improve functional ADL's Goal Progress: Goal Met Plan Plan: D/C TO [facility] AND FOLLOW UP WITH DR. BARRON. PATIENT AGREEABLE. D/C Information d/c sentence: If there are questions or concerns regarding this patient's physical therapy, please feel free to call me at [phone]. Thank you for the referral of this patient. Sincerely, Shelly Shaffer, DPT Balance/Gait/Functional tests Balance/Special Test Scores Oswestry Neck Score: 20 Improvement % Improvement: 80
== END 2023-06-07 19:00 | disposition home or self-care (01) ==
LOC: PT 16:30
PROVIDERS: PCP Student in an Organized Health Care Education/Training Program
DX: M54.2 Cervicalgia (principal); M99.61 Osseous and subluxation stenosis of intervertebral foramina of cervical region
CPT/HCPCS: 97110; 97140; 97162; 97164